=== PATIENT | male | born 1980 | race Caucasian/White ===

== ENCOUNTER 2017-01-13 20:14 | Emergency (ER) | payer OTHER ==
[2017-01-13] MEDS ORDERED: LORazepam 0.5 MG TABLET PO STA (23:49)
[2017-01-13] MEDS ORDERED: LORazepam 0.5 MG TABLET ONE (23:49)
== END 2017-01-14 15:16 ==
DX: F99 Mental disorder, not otherwise specified (principal); F12.10 Cannabis abuse, uncomplicated; F19.10 Other psychoactive substance abuse, uncomplicated; R03.0 Elevated blood-pressure reading, without diagnosis of hypertension
CPT/HCPCS: 36415; 80053; 80306; 80320; 83690; 84443; 85025; 99283; 99285; A9270

== ENCOUNTER 2019-02-16 11:35 | Inpatient (IN) | payer OTHER ==
[2019-02-16] MEDS ORDERED: ONDANSETRON 4 MG/2 ML VIAL IVP STA (13:11)
[2019-02-16] MEDS ORDERED: SODIUM CHLORIDE 0.9% 1,000 ML IV ONE ×2 (13:11→14:18)
--- NOTE | 2019-02-16 13:14 | ED Physician Documentation ---
PD HPI NVD - Stated complaint Stated Complaint: VOMITING/WEAKNESS - Chief complaint Chief Complaint: General - History obtained from History obtained from: Patient, Family (Mother) - History of Present Illness Timing - onset: How many days ago (2) Timing - duration: Days (2) Timing - details: Still present Contributing factors: Sick contact (Brother was previously sick with similar symptoms.) Similar symptoms before: Has not had sx before - Additonal information Additional information: The patient is a 38-year-old male who presents with nausea and vomiting that has been ongoing for the past 2 days. He had one episode of diarrhea. He denies abdominal pain or fever, but he does report cold sweats, and comes in concerned about dehydration. He has had decreased urine output. He denies headache or sore throat. His brother was sick with similar symptoms previously, but has improved. The patient has a history of depression and recently had an increase in his medication, Rexulti. Review of Systems Constitutional: reports: Myalgias, Fatigue, Sweats Eyes: denies: Irritation Ears: denies: Tinnitus/ringing Nose: denies: Congestion Throat: denies: Sore throat Cardiac: denies: Chest pain / pressure Respiratory: denies: Dyspnea, Cough GI: reports: Nausea, Vomiting. denies: Abdominal Pain : denies: Dysuria Skin: denies: Rash Musculoskeletal: denies: Back pain Neurologic: denies: Syncope, Headache PD PAST MEDICAL HISTORY - Past Medical History Past Medical History: Yes Endocrine/Autoimmune: None Psych: Depression - Past Surgical History Past Surgical History: No - Present Medications Home Medications: Ambulatory Orders Medication Instructions Recorded Confirmed Brexpiprazole [Rexulti] 0.5 mg PO DAILY 02/16/19 02/16/19 Methylphenidate HCl 52 mg PO DAILY 02/16/19 02/16/19 [Methylphenidate ER] Mirtazapine 45 mg PO DAILY PM 02/16/19 02/16/19 Venlafaxine ER [Effexor ER] 37.5 mg PO DAILY 02/16/19 02/16/19 - Allergies Allergies/Adverse Reactions: Allergies Allergy/AdvReac Type Severity Reaction Status Date / Time venom-wasp Allergy Anaphylaxis Verified 02/16/19 11:53 - Social History Does the pt smoke?: No Smoking Status: Never smoker Does the pt drink ETOH?: No Does the pt have substance abuse?: Yes - Immunizations Immunizations are current?: Yes - POLST Patient has POLST: No PD ED PE NORMAL - Vitals Vital signs reviewed: Yes (tachycardic) - General General: Alert and oriented X 3, Well developed/nourished, Other (Appears dehydrated, with sunken eyes.) - HEENT HEENT: Atraumatic, EOMI, Pharynx benign, Other (Dry oral mucosa.) - Neck Neck: Supple, no meningeal sign, No adenopathy - Cardiac Cardiac: No murmur, Other (Rapid rate, regular rhythm.) - Respiratory Respiratory: No respiratory distress, Clear bilaterally - Abdomen Abdomen: Soft, Non tender - Back Back: No CVA TTP - Derm Derm: No rash - Extremities Extremities: No edema, No calf tenderness / cord - Neuro Neuro: Alert and oriented X 3, No motor deficit Results - Vitals Vitals: Vital Signs - 24 hr 02/16/19 02/16/19 02/16/19 11:48 14:28 16:28 Temperature 37.2 C Heart Rate 128 H 115 H 99 Respiratory 20 20 18 Rate Blood Pressure 116/77 148/113 H 125/63 O2 Saturation 99 100 99 Oxygen O2 Source Room air - Labs Labs: Laboratory Tests 02/16/19 02/16/19 02/16/19 13:27 13:27 13:27 WBC 23.7 H RBC 5.61 Hgb 16.8 Hct 50.1 MCV 89.3 MCH 30.0 MCHC 33.6 RDW 13.5 Plt Count 386 MPV 8.9 Neut # (Auto) 20.8 H Lymph # (Auto) 1.5 Fannin # (Auto) 1.3 H Eos # (Auto) 0.0 Baso # (Auto) 0.0 Absolute Nucleated RBC 0.01 Band Neuts % (Manual) Not Reportable Abnorm Lymph % (Manual) Not Reportable Nucleated RBC % 0.0 Neutrophils # (Manual) Not Reportable Lymphocytes # (Manual) Not Reportable Monocytes # (Manual) Not Reportable Eosinophils # (Manual) Not Reportable Basophils # (Manual) Not Reportable Differential Comment MANUAL=AUTO DIFF Manual Slide Review Indicated Platelet Estimate NORMAL (130-450,000) Platelet Morphology NORMAL APPEARANCE RBC Morph Micro Appear NORMAL APPEARANCE Sodium Potassium Chloride Carbon Dioxide Anion Gap BUN Creatinine Estimated GFR (MDRD) Glucose Lactic Acid Calcium Total Bilirubin AST Alkaline Phosphatase Total Creatine Kinase 735 H Total Protein Albumin Globulin Albumin/Globulin Ratio Lipase Urine Color Cancelled Urine Clarity Cancelled Urine pH Cancelled Ur Specific Herald Cancelled Urine Protein Cancelled Urine Glucose (UA) Cancelled Urine Ketones Cancelled Urine Occult Blood Cancelled Urine Nitrite Cancelled Urine Bilirubin Cancelled Urine Urobilinogen Cancelled Ur Leukocyte Esterase Cancelled Urine RBC Urine WBC Ur Squamous Epith Cells Amorphous Sediment Urine Bacteria Urine Casts Ur Microscopic Review Cancelled Urine Culture Comments Cancelled 02/16/19 02/16/19 02/16/19 14:03 14:03 16:23 WBC RBC Hgb Hct MCV MCH MCHC RDW Plt Count MPV Neut # (Auto) Lymph # (Auto) Fannin # (Auto) Eos # (Auto) Baso # (Auto) Absolute Nucleated RBC Band Neuts % (Manual) Abnorm Lymph % (Manual) Nucleated RBC % Neutrophils # (Manual) Lymphocytes # (Manual) Monocytes # (Manual) Eosinophils # (Manual) Basophils # (Manual) Differential Comment Manual Slide Review Platelet Estimate Platelet Morphology RBC Morph Micro Appear Sodium 131 L Potassium 5.0 Chloride 82 L Carbon Dioxide 21 Anion Gap 28.0 H BUN 53 H Creatinine 6.0 H Estimated GFR (MDRD) 11 L Glucose 150 H Lactic Acid 2.4 H Calcium 10.3 Total Bilirubin 0.8 AST 57 H Alkaline Phosphatase 89 Total Creatine Kinase Total Protein 10.0 H Albumin 5.8 H Globulin 4.2 Albumin/Globulin Ratio 1.4 Lipase 31 Urine Color YELLOW Urine Clarity CLOUDY Urine pH 5.0 Ur Specific Herald >=1.030 H Urine Protein 100 H Urine Glucose (UA) NEGATIVE Urine Ketones 40 H Urine Occult Blood MODERATE H Urine Nitrite NEGATIVE Urine Bilirubin NEGATIVE Urine Urobilinogen 0.2 (NORMAL) Ur Leukocyte Esterase NEGATIVE Urine RBC 0-5 Urine WBC 4-5 Ur Squamous Epith Cells RARE Squamous Amorphous Sediment Few Urine Bacteria Few Urine Casts 3-5 Granular Casts Ur Microscopic Review Urine Culture Comments NOT INDICATED PD MEDICAL DECISION MAKING - ED course Complexity details: reviewed results, re-evaluated patient, considered differential, d/w patient, d/w family, d/w jewelry consultant ED course: The patient's presentation is significant for dehydration with elevated BUN and creatinine of 53 and 6.0. His lactate level is elevated at 2.4, and his creatine kinase is elevated at 735. His urine is concentrated with specific gravity greater than 1.030, with sediments. White count is elevated at 23.7. His dehydration is associated with a 2-day history of vomiting. His abdominal exam is benign, and there is no evidence of urinary tract infection on urinalysi s. He has had no pulmonary symptoms. He reports that his brother was sick with vomiting for 24 hours prior to his getting sick. His brothers symptoms have since resolved. During the past week a new antidepressant medication, Rexulti, was added to his antidepressant treatment. Treatment in the emergency department included administration of normal saline 2 L IV, and Zofran 4 mg IV. He felt subjectively improved after this treatment, and was able to urinate. Because of his acute renal function impairment, it is medically prudent to continue IV fluid hydration and recheck renal function. I discussed his condition with Dr. Zamudio, who accepts him for further evaluation and treatment. Departure - Departure Disposition: ED Place in Observation Clinical Impression: Dehydration, Creatinine elevation Vomiting Qualifiers: Vomiting type: unspecified Vomiting Intractability: non-intractable Nausea presence: with nausea Qualified Code(s): R11.2 - Nausea with vomiting, unspe cified Condition: Stable Discharge Date/Time: 02/16/19 18:08
[2019-02-16] MEDS ORDERED: ONDANSETRON 4 MG/2 ML VIAL ONE (13:26)
[2019-02-16] MEDS ORDERED: PROMETHAZINE INJ 12.5 MG in SODIUM CHLORIDE 0.9% 50 ML IV STA (14:18)
[2019-02-16] MEDS ORDERED: PROMETHAZINE 25 MG/1 ML VIAL ONE (14:27)
[2019-02-16 15:17] LABS: ALBUMIN 5.8 g/dL (3.2-5.5); ALBUMIN/GLOBULIN RATIO 1.4 (1.0-2.2); ALKALINE PHOSPHATASE 89 IU/L (42-121); AST ASPARTATE AMINOTRANSFERASE 57 IU/L (10-42); BILIRUBIN,TOTAL 0.8 mg/dL (0.2-1.0); BUN - BLOOD UREA NITROGEN 53 mg/dL (6-20); CALCIUM 10.3 mg/dL (8.5-10.3); CARBON DIOXIDE - CO2 21 mmol/L (21-32); CHLORIDE 82 mmol/L (101-111); GFR - MDRD 11 (>89); GLUCOSE 150 mg/dL (70-100); LIPASE 31 U/L (22-51); SODIUM 131 mmol/L (135-145)
[2019-02-16 15:53] LABS: BASOPHILS % (AUTO) 0.2 %; HGB - HEMOGLOBIN 16.8 g/dL (14.0-18.0); LYMPHOCYTES # (AUTO) 1.5 10^3/uL (1.5-3.5); LYMPHOCYTES % (AUTO) 6.5 %; MEAN CORPUSCULAR HGB CONC 33.6 g/dL (32.0-36.0); MEAN CORPUSCULAR VOLUME 89.3 fL (80.0-94.0); MEAN PLATELET VOLUME 8.9 fL (7.4-11.4); MONOCYTES # (AUTO) 1.3 10^3/uL (0.0-1.0); MONOCYTES % (AUTO) 5.4 %; NEUTROPHILS # (AUTO) 20.8 10^3/uL (1.5-6.6); NEUTROPHILS % (AUTO) 87.9 %; PLT - PLATELET COUNT 386 10^3/uL (130-450); RED BLOOD COUNT 5.61 10^6/uL (4.70-6.10); RED CELL DISTRIBUTION WIDTH 13.5 % (12.0-15.0); WHITE BLOOD COUNT 23.7 x10^3/uL (4.8-10.8)
[2019-02-16 16:00] LABS: BILIRUBIN,URINE NEGATIVE (NEGATIVE); GLUCOSE, URINE (UA) NEGATIVE (NEGATIVE); KETONES,URINE (UA) 40 mg/dL (NEGATIVE); LEUKOCYTE ESTERASE, URINE NEGATIVE (NEGATIVE); NITRITE,URINE NEGATIVE (NEGATIVE); OCCULT BLOOD,URINE MODERATE (NEGATIVE); PROTEIN,URINE 100 mg/dL (NEGATIVE); UROBILINOGEN,URINE 0.2 (NORMAL) E.U./dL (NORMAL)
[2019-02-16 16:01] LABS: BACTERIA,URINE Few /HPF (None Seen); CLARITY,URINE CLOUDY (CLEAR); RBC,URINE 0-5 /HPF (0-5); SQUAMOUS EPITHELIAL CELL,UR RARE Squamous (<= Few)
[2019-02-16 16:02] LABS: AMORPHOUS SEDIMENT,UR Few /LPF
[2019-02-16 16:52] LABS: DIFFERENTIAL COMMENT MANUAL=AUTO DIFF; PLATELET ESTIMATE, MANUAL NORMAL (130-450,000) (NORMAL); PLATELET MORPHOLOGY NORMAL APPEARANCE (NORMAL); RBC MORPHOLOGY (MULTIPLE) NORMAL APPEARANCE (NORMAL)
[2019-02-16] MEDS ORDERED: ONDANSETRON 4 MG/2 ML VIAL IVP PRN (17:25)
[2019-02-16] MEDS ORDERED: ACETAMINOPHEN 325 MG TABLET PO PRN (17:25)
[2019-02-16] MEDS ORDERED: PROMETHAZINE 25 MG/1 ML VIAL IM PRN (17:25)
--- NOTE | 2019-02-16 17:33 | HISTORY & PHYSICAL EXAMINATION ---
Chief Complaint - Chief Complaint Chief Complaint: vomiting and weakness History of Present Illness - History of Present Illness HPI Comment/Other: Mr. Rucker is 38-yrs-old male with a PMH significant for depression, who present ER for complaint of vomiting and weakness. Pt report he had nausea and vomiting that has been ongoing for the past 2 days " I can not get down anything, then it immediately vomit back up." Pt report he had one episode sickness like this before but it went away quickly. But this time he continue nausea and vomiting, and with cold sweating, and his vomiting did not go away. He denies fever, cough, chest pain, or abdominal pain. Pt denies dysurine or hematouria. pt comes in concerned about his dehydration today. Pt also report his urine output is decreased. pt had no urine from last night until he was arrival to hospital. After pt was treat with IVF of NS in ER. Pt had twice urination in ER. Pt report his psychiatrist recently increased his medication, Rexulti from 0.5 mg to 1mg for two days. Pt started Rexulti 0.5 mg for two weeks ago, per pt report. Pt's BUN and creatinine of 53 and 6.0. Pt's creatinine is 0.9 at 2017. His lactate level elevated at 2.4, and his creatine kinase is at 735. His White count elevated at 23.7. Pt was initially tachycardia then HR is down to 80-99, otherwise pt is hemodynamic stable. pt is admitted for RCISTI History - Past Medical History Endocrine/Autoimmune: reports: None Psych: reports: Depression MRSA Hx?: No - Family & Social History Family History: Mother: Alive and Well Family History Comment/Other: pt is single, never . pt is living at [place]. Pt has one brother and his mother is living closely to him. 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 Social History Notes: pt denies cigarett smoker, alcohol and drug abuse. - POLST Patient has POLST: No POLST Status: Full Code Meds/Allgy - Home Medications Home Medications: Ambulatory Orders Medication Instructions Recorded Confirmed Brexpiprazole [Rexulti] 0.5 mg PO DAILY 02/16/19 02/16/19 Methylphenidate HCl 52 mg PO DAILY 02/16/19 02/16/19 [Methylphenidate ER] Mirtazapine 45 mg PO DAILY PM 02/16/19 02/16/19 Venlafaxine ER [Effexor ER] 37.5 mg PO DAILY 02/16/19 02/16/19 - Allergies Allergies/Adverse Reactions: Allergies Allergy/AdvReac Type Severity Reaction Status Date / Time venom-wasp Allergy Anaphylaxis Verified 02/16/19 11:53 Review of Systems - Constitutional Constitutional: reports: Fatigue, Weakness, Diaphoresis. denies: Fever, Chills, Malaise, Poor appetite, Night sweats - Eyes Eyes: denies: Pain, Irritation, Amaurosis, Blurred vision, Spots in vision, Field loss, Vision loss, Dipolpia - Ears, Nose & Throat Ears, Nose & Throat: denies: Ear pain, Hearing loss, Hearing aids, Tinnitus, Vertigo, Nasal pain, Nasal discharge, Nosebleeds, Nasal obstruction, Postnasal drainage, Dentures, Sore throat, Hoarseness - Cardiovascular Cariovascular: denies: Irregular heart rate, Palpitations, Chest pain, Edema, Lightheadedness, Syncope, Exertional dyspnea, Decr. exercise tolerance - Respiratory Respiratory: denies: Cough, Sputum production, Wheezing, Snoring, Hemoptysis, Orthopnea, SOB at rest, SOB with exertion - Gastrointestinal Gastrointestinal: reports: Diarrhea, Nausea, Vomiting. denies: Abdominal pain, Abdominal distention, Constipation, Change in bowel habits, Rectal bleeding, Black stools, Bloody stools, Bile emesis, Cameron blood emesis, Coffee grounds emesis, Reflux/heartburn - Genitourinary Genitourinary: denies: Dysuria, Frequency, Urgency, Hematuria, Incontinence, Flank pain, Nocturia, Urethral discharge - Musculoskeletal Musculoskeletal: denies: Muscle pain, Back pain, Muscle aches, Stiffness, Limited range of motion, Muscle weakness, Gout, Joint pain - Integumentary Integumentary: denies: Rash, Pruritis, Lesions, Dryness, Lumps, Acne, Pigment changes, Nail changes - Neurological Neurological: denies: General weakness, Focal weakness, Headache, Dizziness, Numbness, Memory problems, Pre-existing deficit, Abnormal gait, Seizures, Incoordination, Slurred speech - Psychiatric Psychiatric: reports: Depression. denies: Anxiety, Suicidal, Delusions, Hallucinations, Homicidal - Endocrine Endocrine: denies: Polyuria, Polydypsia, Polyphagia, Intolerance to cold - Hematologic/Lymphatic Hematologic/Lymphatic: denies: Anemia, Bruising, Petechiae, Blood clots, Lymphadenopathy, Bleeding tendencies Prior Level of Functionality: independently Exam - Vital Signs Reviewed Vital Signs: Yes Vital Signs: Vital Signs x48h Temp Pulse Resp BP Pulse Ox 02/16/19 16:28 99 18 125/63 99 02/16/19 14:28 115 H 20 148/113 H 100 02/16/19 11:48 37.2 C 128 H 20 116/77 99 - Physical Exam General Appearance: positive: No acute distress, Alert. negative: Lethargic Eyes Bilateral: positive: Normal inspection, PERRL, No lid inflammation, Conjunctivae nml ENT: positive: ENT inspection nml, Pharynx nml, No signs of dehydration. negative: Purulent nasal drainage, Pharyngeal erythema, Oral lesions Neck: positive: Nml inspection, Thyroid nml, No JVD, Trachea midline. negative: Thyromegaly, Lymphadenopathy (R), Lymphadenopathy (L), Stiff neck, Swell ing/bruising, Tracheal deviation Respiratory: positive: Chest non-tender, No respiratory distress, Breath sounds nml. negative: Wheezes, Rales, Rhonchi Cardiovascular: positive: Regular rate & rhythm, No murmur, No gallop, Irregularly irregular, Extrasystoles. negative: Tachycardia, Bradycardia, JVD present, Systolic murmur, Diastolic murmur Peripheral Pulses: positive: 2+ Abdomen: positive: Non-tender, No organomegaly, Nml bowel sounds, No distention. negative: Tenderness, Guarding, Rebound Back: positive: Nml inspection. negative: CVA tenderness (R), CVA tenderness (L) Skin: positive: Color nml, No rash, Warm, Dry. negative: Cyanosis, Diaphoresis, Pallor Extremities: positive: Non-tender, Full ROM, Nml appearance. negative: Calf tenderness, Joint swelling, Jared's sign/cords Neurologic/Psychiatric: positive: Oriented x3, Motor nml, Sensation nml, Mood/affect nml. negative: Weakness, Sensory loss, Facial droop, Slurred/abnml speech, Depressed mood/affect Sepsis Event Note (H) - Evaluation Current Stage of Sepsis: Ruled out Conclusion/Plan - Problem List (1) Acute kidney injury Conclusion/Plan: pt has creatinine at 6, pt had 0.9 on 2017. pt had a new medication Rexulti for two weeks, increase dosage for two days. Rexulti did have side effect of increase CK. Pt report he has vomiting and diarrhea, and concern for dehydration. CK is over 700. Hold pt's home medication now start IVF of 250ml per hour. pt has no hx of cardiac problem. lab monitor and tele monitor (2) History of depression Conclusion/Plan: pt has hx of depression. For his CRISTI, pt's home medication is holding now. will reconcile when pt's renal function improved significantly. pt and pt's mother understand and agree the plan. (3) Nausea vomiting and diarrhea Conclusion/Plan: no more N/V/D. PRN Zofran continue IVF of NS lab monitor (4) Full code status Conclusion/Plan: pt request full code - Lab Results Fish Bones: 02/17/19 05:15 02/17/19 05:15 Core Measures - Anticipated LOS I expect patient to be DC'd or transferred within 96 hours.: Yes - DVT/VTE - Prophylaxis VTE/DVT Device ordered at admit?: Yes VTE/DVT Prophylaxis med ordered at admit?: Yes
[2019-02-16] MEDS: SODIUM CHLORIDE FLUSH 0.9% 10 ML SYRINGE IVP SCH (18:26)
[2019-02-16] MEDS: PANTOPRAZOLE 40 MG VIAL IVP SCH (18:26)
[2019-02-16] MEDS: SODIUM CHLORIDE 0.9% 1,000 ML IV SCH ×2 (18:26→22:28)
--- NOTE | 2019-02-16 19:42 | Ultrasound Report ---
Reason: renal failure Procedure Date: 02/16/2019 Accession Number: [id number] / [id number] Procedure: US - Retroperitoneal CPT Code: FULL RESULT: EXAM: RENAL ULTRASOUND EXAM DATE: 02/16/2019 06:46 PM. CLINICAL HISTORY: Renal failure. COMPARISON: None. TECHNIQUE: Real-time scanning was performed with static images obtained. FINDINGS: Right Kidney: 11 x 5.7 x 5.8 cm. Normal echotexture with no stones, contour-deforming masses, or hydronephrosis. Left Kidney: 10.2 x 5.4 x 5.8 cm. Normal echotexture with no stones, contour-deforming masses, or hydronephrosis. Bladder: Bilateral jets seen. The prevoid bladder volume was 180 cc. The postvoid bladder volume was 5.8 cc. Other: None. IMPRESSION: Normal renal ultrasound. RADIA
[2019-02-16] MEDS ORDERED: MECLIZINE 12.5 MG TABLET PO PRN ×2 (21:28→22:05)
[2019-02-16] MEDS ORDERED: MIDODRINE 2.5 MG TABLET PO PRN (21:28)
[2019-02-17] MEDS: SODIUM CHLORIDE 0.9% 1,000 ML IV SCH ×6 (02:32→23:57)
[2019-02-17 05:48] LABS: EOSINOPHILS % (AUTO) 0.2 %; HGB - HEMOGLOBIN 10.3 g/dL (14.0-18.0); LYMPHOCYTES % (AUTO) 18.9 %; MEAN CORPUSCULAR HEMOGLOBIN 30.8 pg (27.0-31.0); MEAN CORPUSCULAR HGB CONC 33.9 g/dL (32.0-36.0); MEAN CORPUSCULAR VOLUME 90.9 fL (80.0-94.0); MEAN PLATELET VOLUME 8.6 fL (7.4-11.4); MONOCYTES # (AUTO) 1.1 10^3/uL (0.0-1.0); MONOCYTES % (AUTO) 10.5 %; NEUTROPHILS # (AUTO) 7.5 10^3/uL (1.5-6.6); NEUTROPHILS % (AUTO) 70.4 %; PLT - PLATELET COUNT 191 10^3/uL (130-450); RED BLOOD COUNT 3.35 10^6/uL (4.70-6.10); RED CELL DISTRIBUTION WIDTH 13.6 % (12.0-15.0); WHITE BLOOD COUNT 10.6 x10^3/uL (4.8-10.8)
[2019-02-17 05:54] LABS: ALBUMIN 3.3 g/dL (3.2-5.5); ALBUMIN/GLOBULIN RATIO 1.5 (1.0-2.2); BILIRUBIN,TOTAL 0.6 mg/dL (0.2-1.0); CREATININE 2.1 mg/dL (0.6-1.2); TOTAL PROTEIN 5.5 g/dL (6.7-8.2)
[2019-02-17] MEDS: PANTOPRAZOLE 40 MG VIAL IVP SCH (06:18)
[2019-02-17] MEDS: SODIUM CHLORIDE FLUSH 0.9% 10 ML SYRINGE IVP PRN (06:19)
[2019-02-17] MEDS: POLYETHYLENE GLYCOL 3350 17 GM PACKET PO SCH (11:22)
[2019-02-17] MEDS: SODIUM CHLORIDE FLUSH 0.9% 10 ML SYRINGE IVP SCH ×3 (11:22→23:59)
--- NOTE | 2019-02-17 14:55 | PROVIDER PROGRESS NOTE ---
Subjective - Prog Note Date Prog Note Date: 02/17/19 - Subjective Pt reports feeling: Improved Subjective: pt report he feel better today, no N/V/D. he ate the dinner but no appetite in the morning. pt report he had good urine also. pt's creatinine is down to 2.1 from 6. but CK is slight increasing from 700 to 1000. Current Medications - Current Medications Current Medications: Active Medications Acetaminophen (Tylenol) 650 mg PO Q4HR PRN PRN Reason: Pain 1 to 4 Sodium Chloride (Normal Saline 0.9%) 1,000 mls @ 250 mls/hr IV .Q4H [facility] Last Admin: 02/17/19 11:20 Dose: 250 mls/hr Meclizine HCl (Antivert) 25 mg PO Q6HR PRN PRN Reason: Dizziness Midodrine () 10 mg PO TID PRN PRN Reason: SBP<100 Ondansetron HCl (Zofran Inj) 4 mg IVP Q6HR PRN PRN Reason: Nausea / Vomiting Pantoprazole Sodium (Protonix) 40 mg IVP QDAC [facility] Last Admin: 02/17/19 06:18 Dose: 40 mg Polyethylene Glycol (Miralax) 17 gm PO DAILY [facility] Last Admin: 02/17/19 11:22 Dose: Not Given Promethazine HCl (Phenergan Inj) 25 mg IM Q6HR PRN PRN Reason: Nausea / Vomiting Sodium Chloride (Normal Saline Flush 0.9%) 10 ml IVP PRN PRN PRN Reason: NEEDED PER PROVIDER ORDERS Last Admin: 02/17/19 06:19 Dose: 10 ml Sodium Chloride (Normal Saline Flush 0.9%) 10 ml IVP 0100,0900,1700 [facility] Last Admin: 02/17/19 11:22 Dose: Not Given Brexpiprazole [Rexulti] 0.5 mg PO DAILY 02/16/19 Methylphenidate HCl [Methylphenidate ER] 52 mg PO DAILY 02/16/19 Mirtazapine 45 mg PO DAILY PM 02/16/19 Venlafaxine ER [Effexor ER] 37.5 mg PO DAILY 02/16/19 Objective - Vital Signs/Intake & Output Reviewed Vital Signs: Yes Vital Signs: Vital Signs x48h Temp Pulse Resp BP Pulse Ox 02/17/19 13:05 37 C 67 20 112/55 L 97 02/17/19 07:47 36.7 C 66 16 104/54 L 98 Intake & Output: Intake & Output 02/14/19 02/15/19 02/16/19 02/17/19 23:59 23:59 23:59 23:59 Intake Total 4350.5 3590 Output Total 850 4800 Balance 3500.5 -1210 - Objective General Appearance: positive: No acute distress, Alert. negative: Lethargic Eyes Bilateral: positive: Normal inspection, PERRL, No lid inflammation, Conjunctivae nml ENT: positive: ENT inspection nml, Pharynx nml, No signs of dehydration. negative: Purulent nasal drainage, Pharyngeal erythema, Oral lesions Neck: positive: Nml inspection, Thyroid nml, No JVD, Trachea midline. negative: Thyromegaly, Lymphadenopathy (R), Lymphadenopathy (L), Stiff neck, Swelling/bru ising, Tracheal deviation Respiratory: positive: Chest non-tender, No respiratory distress, Breath sounds nml. negative: Wheezes, Rales, Rhonchi Cardiovascular: positive: Regular rate & rhythm, No murmur, No gallop. negative: Irregularly irregular, Extrasystoles, Tachycardia, Bradycardia, JVD present, Systolic murmur, Diastolic murmur Peripheral Pulses: 2+ Radial (R), 2+ Radial (L), 2+ Dorsalis pedis (R), 2+ Dorsalis pedis (L) Abdomen: positive: Non-tender, No organomegaly, Nml bowel sounds, No distention. negative: Tenderness, Guarding, Rebound Back: positive: Nml inspection. negative: CVA tenderness (R), CVA tenderness (L) Skin: positive: Color nml, No rash, Warm, Dry. negative: Cyanosis, Diaphoresis, Pallor Extremities: positive: Non-tender, Full ROM, Nml appearance. negative: Calf tenderness, Joint swelling, Jared's sign/cords Neurologic/Psychiatric: positive: Oriented x3, Motor nml, Sensation nml, Mood/affect nml. negative: Weakness, Sensory loss, Facial droop, Slurred/abnml speech, Depressed mood/affect - Lab Results Fish Bones: 02/17/19 05:15 02/17/19 05:15 Other Labs: Lab Results x24hrs 02/17/19 02/17/19 02/17/19 Range/Units 09:01 09:01 05:15 WBC (4.8-10.8) x10^3/uL RBC (4.70-6.10) 10^6/uL Hgb (14.0-18.0) g/dL Hct (42.0-52.0) % MCV (80.0-94.0) fL MCH (27.0-31.0) pg MCHC (32.0-36.0) g/dL RDW (12.0-15.0) % Plt Count (130-450) 10^3/uL MPV (7.4-11.4) fL Neut # (Auto) (1.5-6.6) 10^3/uL Lymph # (Auto) (1.5-3.5) 10^3/uL [place] # (Auto) (0.0-1.0) 10^3/uL Eos # (Auto) (0.0-0.7) 10^3/uL Baso # (Auto) (0.0-0.1) 10^3/uL Absolute Nucleated RBC x10^3/uL Band Neuts % (Manual) Abnorm Lymph % (Manual) Nucleated RBC % /100WBC Neutrophils # (Manual) Lymphocytes # (Manual) Monocytes # (Manual) Eosinophils # (Manual) Basophils # (Manual) Differential Comment Manual Slide Review Platelet Estimate (NORMAL) Platelet Morphology (NORMAL) RBC Morph Micro Appear (NORMAL) Sodium 139 (135-145) mmol/L Potassium 5.3 H (3.5-5.0) mmol/L Chloride 110 (101-111) mmol/L Carbon Dioxide 23 (21-32) mmol/L Anion Gap 6.0 (6-13) BUN 39 H (6-20) mg/dL Creatinine 2.1 H (0.6-1.2) mg/dL Estimated GFR (MDRD) 36 L (>89) Glucose 98 (70-100) mg/dL Lactic Acid 1.6 (0.5-2.2) mmol/L Calcium 8.0 L (8.5-10.3) mg/dL Total Bilirubin 0.6 (0.2-1.0) mg/dL AST 33 (10-42) IU/L ALT 21 (10-60) IU/L Alkaline Phosphatase 47 (42-121) IU/L Total Creatine Kinase 1031 H* (22-269) IU/L Total Protein 5.5 L (6.7-8.2) g/dL Albumin 3.3 (3.2-5.5) g/dL Globulin 2.2 (2.1-4.2) g/dL Albumin/Globulin Ratio 1.5 (1.0-2.2) Lipase (22-51) U/L Urine Color Urine Clarity Urine pH Ur Specific [place] Urine Protein Urine Glucose (UA) Urine Ketones Urine Occult Blood Urine Nitrite Urine Bilirubin Urine Urobilinogen Ur Leukocyte Esterase Urine RBC (0-5) /HPF Urine WBC (0-3) /HPF Ur Squamous Epith Cells (<= Few) Amorphous Sediment /LPF Urine Bacteria (None Seen) /HPF Urine Casts /LPF Ur Microscopic Review Urine Culture Comments 02/17/19 02/16/19 02/16/19 Range/Units 05:15 16:23 14:03 WBC 10.6 (4.8-10.8) x10^3/uL RBC 3.35 L (4.70-6.10) 10^6/uL Hgb 10.3 L (14.0-18.0) g/dL Hct 30.5 L (42.0-52.0) % MCV 90.9 (80.0-94.0) fL MCH 30.8 (27.0-31.0) pg MCHC 33.9 (32.0-36.0) g/dL RDW 13.6 (12.0-15.0) % Plt Count 191 (130-450) 10^3/uL MPV 8.6 (7.4-11.4) fL Neut # (Auto) 7.5 H (1.5-6.6) 10^3/uL Lymph # (Auto) 2.0 (1.5-3.5) 10^3/uL [place] # (Auto) 1.1 H (0.0-1.0) 10^3/uL Eos # (Auto) 0.0 (0.0-0.7) 10^3/uL Baso # (Auto) 0.0 (0.0-0.1) 10^3/uL Absolute Nucleated RBC 0.01 x10^3/uL Band Neuts % (Manual) Abnorm Lymph % (Manual) Nucleated RBC % 0.0 /100WBC Neutrophils # (Manual) Lymphocytes # (Manual) Monocytes # (Manual) Eosinophils # (Manual) Basophils # (Manual) Differential Comment Manual Slide Review Platelet Estimate (NORMAL) Platelet Morphology (NORMAL) RBC Morph Micro Appear (NORMAL) Sodium (135-145) mmol/L Potassium (3.5-5.0) mmol/L Chloride (101-111) mmol/L Carbon Dioxide (21-32) mmol/L Anion Gap (6-13) BUN (6-20) mg/dL Creatinine (0.6-1.2) mg/dL Estimated GFR (MDRD) (>89) Glucose (70-100) mg/dL Lactic Acid 2.4 H (0.5-2.2) mmol/L Calcium (8.5-10.3) mg/dL Total Bilirubin (0.2-1.0) mg/dL AST (10-42) IU/L ALT (10-60) IU/L Alkaline Phosphatase (42-121) IU/L Total Creatine Kinase (22-269) IU/L Total Protein (6.7-8.2) g/dL Albumin (3.2-5.5) g/dL Globulin (2.1-4.2) g/dL Albumin/Globulin Ratio (1.0-2.2) Lipase (22-51) U/L Urine Color YELLOW Urine Clarity CLOUDY Urine pH 5.0 Ur Specific [place] >=1.030 H Urine Protein 100 H Urine Glucose (UA) NEGATIVE Urine Ketones 40 H Urine Occult Blood MODERATE H Urine Nitrite NEGATIVE Urine Bilirubin NEGATIVE Urine Urobilinogen 0.2 (NORMAL) Ur Leukocyte Esterase NEGATIVE Urine RBC 0-5 (0-5) /HPF Urine WBC 4-5 (0-3) /HPF Ur Squamous Epith Cells RARE Squamous (<= Few) Amorphous Sediment Few /LPF Urine Bacteria Few (None Seen) /HPF Urine Casts 3-5 Granular Casts /LPF Ur Microscopic Review Urine Culture Comments NOT INDICATED 02/16/19 02/16/19 02/16/19 Range/Units 14:03 13:27 13:27 WBC (4.8-10.8) x10^3/uL RBC (4.70-6.10) 10^6/uL Hgb (14.0-18.0) g/dL Hct (42.0-52.0) % MCV (80.0-94.0) fL MCH (27.0-31.0) pg MCHC (32.0-36.0) g/dL RDW (12.0-15.0) % Plt Count (130-450) 10^3/uL MPV (7.4-11.4) fL Neut # (Auto) (1.5-6.6) 10^3/uL Lymph # (Auto) (1.5-3.5) 10^3/uL [place] # (Auto) (0.0-1.0) 10^3/uL Eos # (Auto) (0.0-0.7) 10^3/uL Baso # (Auto) (0.0-0.1) 10^3/uL Absolute Nucleated RBC x10^3/uL Band Neuts % (Manual) Abnorm Lymph % (Manual) Nucleated RBC % /100WBC Neutrophils # (Manual) Lymphocytes # (Manual) Monocytes # (Manual) Eosinophils # (Manual) Basophils # (Manual) Differential Comment Manual Slide Review Platelet Estimate (NORMAL) Platelet Morphology (NORMAL) RBC Morph Micro Appear (NORMAL) Sodium 131 L (135-145) mmol/L Potassium 5.0 (3.5-5.0) mmol/L Chloride 82 L (101-111) mmol/L Carbon Dioxide 21 (21-32) mmol/L Anion Gap 28.0 H (6-13) BUN 53 H (6-20) mg/dL Creatinine 6.0 H (0.6-1.2) mg/dL Estimated GFR (MDRD) 11 L (>89) Glucose 150 H (70-100) mg/dL Lactic Acid (0.5-2.2) mmol/L Calcium 10.3 (8.5-10.3) mg/dL Total Bilirubin 0.8 (0.2-1.0) mg/dL AST 57 H (10-42) IU/L ALT (10-60) IU/L Alkaline Phosphatase 89 (42-121) IU/L Total Creatine Kinase 735 H (22-269) IU/L Total Protein 10.0 H (6.7-8.2) g/dL Albumin 5.8 H (3.2-5.5) g/dL Globulin 4.2 (2.1-4.2) g/dL Albumin/Globulin Ratio 1.4 (1.0-2.2) Lipase 31 (22-51) U/L Urine Color Cancelled Urine Clarity Cancelled Urine pH Cancelled Ur Specific [place] Cancelled Urine Protein Cancelled Urine Glucose (UA) Cancelled Urine Ketones Cancelled Urine Occult Blood Cancelled Urine Nitrite Cancelled Urine Bilirubin Cancelled Urine Urobilinogen Cancelled Ur Leukocyte Esterase Cancelled Urine RBC (0-5) /HPF Urine WBC (0-3) /HPF Ur Squamous Epith Cells (<= Few) Amorphous Sediment /LPF Urine Bacteria (None Seen) /HPF Urine Casts /LPF Ur Microscopic Review Cancelled Urine Culture Comments Cancelled 02/16/19 Range/Units 13:27 WBC 23.7 H (4.8-10.8) x10^3/uL RBC 5.61 (4.70-6.10) 10^6/uL Hgb 16.8 (14.0-18.0) g/dL Hct 50.1 (42.0-52.0) % MCV 89.3 (80.0-94.0) fL MCH 30.0 (27.0-31.0) pg MCHC 33.6 (32.0-36.0) g/dL RDW 13.5 (12.0-15.0) % Plt Count 386 (130-450) 10^3/uL MPV 8.9 (7.4-11.4) fL Neut # (Auto) 20.8 H (1.5-6.6) 10^3/uL Lymph # (Auto) 1.5 (1.5-3.5) 10^3/uL [place] # (Auto) 1.3 H (0.0-1.0) 10^3/uL Eos # (Auto) 0.0 (0.0-0.7) 10^3/uL Baso # (Auto) 0.0 (0.0-0.1) 10^3/uL Absolute Nucleated RBC 0.01 x10^3/uL Band Neuts % (Manual) Not Reportable Abnorm Lymph % (Manual) Not Reportable Nucleated RBC % 0.0 /100WBC Neutrophils # (Manual) Not Reportable Lymphocytes # (Manual) Not Reportable Monocytes # (Manual) Not Reportable Eosinophils # (Manual) Not Reportable Basophils # (Manual) Not Reportable Differential Comment MANUAL=AUTO DIFF Manual Slide Review Indicated Platelet Estimate NORMAL (130-450,000) (NORMAL) Platelet Morphology NORMAL APPEARANCE (NORMAL) RBC Morph Micro Appear NORMAL APPEARANCE (NORMAL) Sodium (135-145) mmol/L Potassium (3.5-5.0) mmol/L Chloride (101-111) mmol/L Carbon Dioxide (21-32) mmol/L Anion Gap (6-13) BUN (6-20) mg/dL Creatinine (0.6-1.2) mg/dL Estimated GFR (MDRD) (>89) Glucose (70-100) mg/dL Lactic Acid (0.5-2.2) mmol/L Calcium (8.5-10.3) mg/dL Total Bilirubin (0.2-1.0) mg/dL AST (10-42) IU/L ALT (10-60) IU/L Alkaline Phosphatase (42-121) IU/L Total Creatine Kinase (22-269) IU/L Total Protein (6.7-8.2) g/dL Albumin (3.2-5.5) g/dL Globulin (2.1-4.2) g/dL Albumin/Globulin Ratio (1.0-2.2) Lipase (22-51) U/L Urine Color Urine Clarity Urine pH Ur Specific [place] Urine Protein Urine Glucose (UA) Urine Ketones Urine Occult Blood Urine Nitrite Urine Bilirubin Urine Urobilinogen Ur Leukocyte Esterase Urine RBC (0-5) /HPF Urine WBC (0-3) /HPF Ur Squamous Epith Cells (<= Few) Amorphous Sediment /LPF Urine Bacteria (None Seen) /HPF Urine Casts /LPF Ur Microscopic Review Urine Culture Comments ABX Reporting Has patient been on IV antibiotics over the past 48 hours?: No Sepsis Event Note (H) - Evaluation Current Stage of Sepsis: Ruled out Assessment/Plan - Problem List (1) Acute kidney injury Impression: 02/17 pt's creatinine is down to 2.1 from 6, great improved continue IVF of NS lab monitor hold home meds now pt has creatinine at 6, pt had 0.9 on 2017. pt had a new medication Rexulti for two weeks, increase dosage for two days. Rexulti did have side effect of increase CK. Pt report he has vomiting and diarrhea, and concern for dehydration. CK is over 700. Hold pt's home medication now start IVF of 250ml per hour. pt has no hx of cardiac problem. lab monitor and tele monitor (2) History of depression Conclusion/Plan: hold home meds today for renal function recovery pt and his mother agree the treatment plan pt has hx of depression. For his CRISTI, pt's home medication is holding now. will reconcile when pt's renal function improved significantly. pt and pt's mother understand and agree the plan. (3) Nausea vomiting and diarrhea Conclusion/Plan: resolved no more N/V/D. PRN Zofran continue IVF of NS lab monitor (4) elevated CK pt has slight elevated CK, it appear caused by his medication to affect his muscle. Rexulti did have side effect of increase CK. hold home meds IVF of NS recheck lab
[2019-02-18] MEDS: SODIUM CHLORIDE 0.9% 1,000 ML IV SCH ×6 (04:11→23:54)
[2019-02-18] MEDS: SODIUM CHLORIDE FLUSH 0.9% 10 ML SYRINGE IVP PRN (06:12)
[2019-02-18] MEDS: PANTOPRAZOLE 40 MG VIAL IVP SCH (06:12)
[2019-02-18 06:48] LABS: BASOPHILS % (AUTO) 0.3 %; EOSINOPHILS # (AUTO) 0.1 10^3/uL (0.0-0.7); EOSINOPHILS % (AUTO) 1.6 %; HGB - HEMOGLOBIN 11.8 g/dL (14.0-18.0); LYMPHOCYTES # (AUTO) 2.7 10^3/uL (1.5-3.5); LYMPHOCYTES % (AUTO) 29.3 %; MEAN CORPUSCULAR HEMOGLOBIN 30.7 pg (27.0-31.0); MEAN CORPUSCULAR VOLUME 92.8 fL (80.0-94.0); MEAN PLATELET VOLUME 8.5 fL (7.4-11.4); MONOCYTES # (AUTO) 0.8 10^3/uL (0.0-1.0); MONOCYTES % (AUTO) 8.5 %; NEUTROPHILS # (AUTO) 5.5 10^3/uL (1.5-6.6); NEUTROPHILS % (AUTO) 60.3 %; PLT - PLATELET COUNT 193 10^3/uL (130-450); RED BLOOD COUNT 3.84 10^6/uL (4.70-6.10); RED CELL DISTRIBUTION WIDTH 13.8 % (12.0-15.0); WHITE BLOOD COUNT 9.1 x10^3/uL (4.8-10.8)
[2019-02-18 07:00] LABS: ALBUMIN 3.7 g/dL (3.2-5.5); ALBUMIN/GLOBULIN RATIO 1.5 (1.0-2.2); BILIRUBIN,TOTAL 0.8 mg/dL (0.2-1.0); CALCIUM 8.5 mg/dL (8.5-10.3); TOTAL PROTEIN 6.1 g/dL (6.7-8.2)
[2019-02-18] MEDS: POLYETHYLENE GLYCOL 3350 17 GM PACKET PO SCH (09:45)
[2019-02-18] MEDS ORDERED: MIRTAZAPINE 15 MG TABLET PO SCH ×2 (09:45→21:00)
[2019-02-18] MEDS: VENLAFAXINE ER 37.5 MG CAPSULE PO SCH (10:28)
[2019-02-18] MEDS: SODIUM CHLORIDE FLUSH 0.9% 10 ML SYRINGE IVP SCH ×3 (11:05→23:55)
--- NOTE | 2019-02-18 16:05 | PROVIDER PROGRESS NOTE ---
Subjective - Prog Note Date Prog Note Date: 02/18/19 - Subjective Pt reports feeling: Improved Subjective: pt's creatinine is down to 1 from 6.0. pt really want to his anti-depression and ADD medication put back to him. but pt's CK increased and pt did not eat and drink much. Pt want to go to home strongly, but his family disagree that. pt finally agreed to stay overnight to monitor CK and hopefully drink and eat more. Current Medications - Current Medications Current Medications: Active Medications Acetaminophen (Tylenol) 650 mg PO Q4HR PRN PRN Reason: Pain 1 to 4 Sodium Chloride (Normal Saline 0.9%) 1,000 mls @ 250 mls/hr IV .Q4H [facility] Last Admin: 02/18/19 15:08 Dose: 250 mls/hr Meclizine HCl (Antivert) 25 mg PO Q6HR PRN PRN Reason: Dizziness Midodrine () 10 mg PO TID PRN PRN Reason: SBP<100 Mirtazapine (Remeron) 45 mg PO QPM [facility] Ondansetron HCl (Zofran Inj) 4 mg IVP Q6HR PRN PRN Reason: Nausea / Vomiting Pantoprazole Sodium (Protonix) 40 mg IVP QDAC [facility] Last Admin: 02/18/19 06:12 Dose: 40 mg Methylphenidate Er (36 Mg) 2 each PO DAILY [facility] Last Admin: 02/18/19 10:28 Dose: 2 each Polyethylene Glycol (Miralax) 17 gm PO DAILY [facility] Last Admin: 02/18/19 09:45 Dose: Not Given Promethazine HCl (Phenergan Inj) 25 mg IM Q6HR PRN PRN Reason: Nausea / Vomiting Sodium Chloride (Normal Saline Flush 0.9%) 10 ml IVP PRN PRN PRN Reason: NEEDED PER PROVIDER ORDERS Last Admin: 02/18/19 06:12 Dose: 10 ml Sodium Chloride (Normal Saline Flush 0.9%) 10 ml IVP 0100,0900,1700 [facility] Last Admin: 02/18/19 11:05 Dose: Not Given Venlafaxine HCl (Effexor Er) 37.5 mg PO DAILY [facility] Last Admin: 02/18/19 10:28 Dose: 37.5 mg Brexpiprazole [Rexulti] 0.5 mg PO DAILY 02/16/19 Methylphenidate HCl [Methylphenidate ER] 52 mg PO DAILY 02/16/19 Mirtazapine 45 mg PO DAILY PM 02/16/19 Venlafaxine ER [Effexor ER] 37.5 mg PO DAILY 02/16/19 Objective - Vital Signs/Intake & Output Reviewed Vital Signs: Yes Vital Signs: Vital Signs x48h Temp Pulse Resp BP Pulse Ox 02/18/19 15:40 37.1 C 63 20 130/73 100 02/18/19 12:25 36.7 C 72 18 125/74 100 02/18/19 08:28 36.8 C 58 L 18 116/69 Intake & Output: Intake & Output 02/15/19 02/16/19 02/17/19 02/18/19 23:59 23:59 23:59 23:59 Intake Total 4350.5 7077 3490 Output Total 850 9175 4200 Balance 3500.5 -2098 -710 - Objective General Appearance: positive: No acute distress, Alert. negative: Lethargic Eyes Bilateral: positive: Normal inspection, PERRL, No lid inflammation, Conjunctivae nml ENT: positive: ENT inspection nml, Pharynx nml, No signs of dehydration. negative: Purulent nasal drainage, Pharyngeal erythema, Oral lesions Neck: positive: Nml inspection, Thyroid nml, No JVD, Trachea midline. negative: Thyromegaly, Lymphadenopathy (R), Lymphadenopathy (L), Stiff neck, Swelling/bruising, Tracheal deviation Respiratory: positive: Chest non-tender, No respiratory distress, Breath sounds nml. negative: Wheezes, Rales, Rhonchi Cardiovascular: positive: Regular rate & rhythm, No murmur, No gallop. negative: Irregularly irregular, Extrasystoles, Tachycardia, Bradycardia, JVD present, Systolic murmur, Diastolic murmur Peripheral Pulses: 2+ Radial (R), 2+ Radial (L), 2+ Dorsalis pedis (R), 2+ Dorsalis pedis (L) Abdomen: positive: Non-tender, No organomegaly, Nml bowel sounds, No distention. negative: Tenderness, Guarding, Rebound Back: positive: Nml inspection. negative: CVA tenderness (R), CVA tenderness (L) Skin: positive: Color nml, No rash, Warm, Dry. negative: Cyanosis, Diaphoresis, Pallor Extremities: positive: Non-tender, Full ROM, Nml appearance. negative: Calf tenderness, Joint swelling, Jared's sign/cords Neurologic/Psychiatric: positive: Oriented x3, Sensation nml. negative: Weakness, Sensory loss, Facial droop, Slurred/abnml speech, Depressed mood/affect - Lab Results Fish Bones: 02/18/19 06:21 02/18/19 06:21 Other Labs: Lab Results x24hrs 02/18/19 02/18/19 02/18/19 Range/Units 14:02 06:21 06:21 WBC (4.8-10.8) x10^3/uL RBC (4.70-6.10) 10^6/uL Hgb (14.0-18.0) g/dL Hct (42.0-52.0) % MCV (80.0-94.0) fL MCH (27.0-31.0) pg MCHC (32.0-36.0) g/dL RDW (12.0-15.0) % Plt Count (130-450) 10^3/uL MPV (7.4-11.4) fL Neut # (Auto) (1.5-6.6) 10^3/uL Lymph # (Auto) (1.5-3.5) 10^3/uL [place] # (Auto) (0.0-1.0) 10^3/uL Eos # (Auto) (0.0-0.7) 10^3/uL Baso # (Auto) (0.0-0.1) 10^3/uL Absolute Nucleated RBC x10^3/uL Nucleated RBC % /100WBC Sodium 139 (135-145) mmol/L Potassium 4.4 (3.5-5.0) mmol/L Chloride 107 (101-111) mmol/L Carbon Dioxide 23 (21-32) mmol/L Anion Gap 9.0 (6-13) BUN 20 (6-20) mg/dL Creatinine 1.0 (0.6-1.2) mg/dL Estimated GFR (MDRD) 85 L (>89) Glucose 97 (70-100) mg/dL Calcium 8.5 (8.5-10.3) mg/dL Total Bilirubin 0.8 (0.2-1.0) mg/dL AST 51 H (10-42) IU/L ALT 39 (10-60) IU/L Alkaline Phosphatase 47 (42-121) IU/L Total Creatine Kinase 1227 H* 1114 H* (22-269) IU/L Total Protein 6.1 L (6.7-8.2) g/dL Albumin 3.7 (3.2-5.5) g/dL Globulin 2.4 (2.1-4.2) g/dL Albumin/Globulin Ratio 1.5 (1.0-2.2) 02/18/19 Range/Units 06:21 WBC 9.1 (4.8-10.8) x10^3/uL RBC 3.84 L (4.70-6.10) 10^6/uL Hgb 11.8 L (14.0-18.0) g/dL Hct 35.7 L (42.0-52.0) % MCV 92.8 (80.0-94.0) fL MCH 30.7 (27.0-31.0) pg MCHC 33.0 (32.0-36.0) g/dL RDW 13.8 (12.0-15.0) % Plt Count 193 (130-450) 10^3/uL MPV 8.5 (7.4-11.4) fL Neut # (Auto) 5.5 (1.5-6.6) 10^3/uL Lymph # (Auto) 2.7 (1.5-3.5) 10^3/uL [place] # (Auto) 0.8 (0.0-1.0) 10^3/uL Eos # (Auto) 0.1 (0.0-0.7) 10^3/uL Baso # (Auto) 0.0 (0.0-0.1) 10^3/uL Absolute Nucleated RBC 0.00 x10^3/uL Nucleated RBC % 0.0 /100WBC Sodium (135-145) mmol/L Potassium (3.5-5.0) mmol/L Chloride (101-111) mmol/L Carbon Dioxide (21-32) mmol/L Anion Gap (6-13) BUN (6-20) mg/dL Creatinine (0.6-1.2) mg/dL Estimated GFR (MDRD) (>89) Glucose (70-100) mg/dL Calcium (8.5-10.3) mg/dL Total Bilirubin (0.2-1.0) mg/dL AST (10-42) IU/L ALT (10-60) IU/L Alkaline Phosphatase (42-121) IU/L Total Creatine Kinase (22-269) IU/L Total Protein (6.7-8.2) g/dL Albumin (3.2-5.5) g/dL Globulin (2.1-4.2) g/dL Albumin/Globulin Ratio (1.0-2.2) ABX Reporting Has patient been on IV antibiotics over the past 48 hours?: No Sepsis Event Note (H) - Evaluation Current Stage of Sepsis: Ruled out Assessment/Plan - Problem List (1) Acute kidney injury Impression: 02/18 resolved. creatinine is 1 now, continue hydration 02/17 pt's creatinine is down to 2.1 from 6, great improved continue IVF of NS lab monitor hold home meds now pt has creatinine at 6, pt had 0.9 on 2016. pt had a new medication Rexulti for two weeks, increase dosage for two days. Rexulti did have side effect of increase CK. Pt report he has vomiting and diarrhea, and concern for dehydration. CK is over 700. Hold pt's home medication now start IVF of 250ml per hour. pt has no hx of cardiac problem. lab monitor and tele monitor (2) History of depression and ADD Conclusion/Plan: 02/18 reconcile pt's home but hold Rexulti 02/17 hold home meds today for renal function recovery pt and his mother agree the treatment plan pt has hx of depression. For his CRISTI, pt's home medication is holding now. will reconcile when pt's renal function improved significantly. pt and pt's mother understand and agree the plan. (3) Nausea vomiting and diarrhea Conclusion/Plan: resolved no more N/V/D. PRN Zofran continue IVF of NS lab monitor (4) elevated CK 02/18 pt's CK is still continuing elevated. Rexulti's side effect is believed to be the cause. hold Rexulti continue check CK pt has slight elevated CK, it appear caused by his medication to affect his muscle. Rexulti did have side effect of increase CK. hold home meds IVF of NS recheck lab (5) loss of appetite unknown etiology, may be caused by current illness consult with surgical corsetier continue encourage pt drink and eat enough and keep hydration.
[2019-02-19] MEDS: SODIUM CHLORIDE 0.9% 1,000 ML IV SCH (04:49)
[2019-02-19] MEDS: SODIUM CHLORIDE FLUSH 0.9% 10 ML SYRINGE IVP PRN (05:53)
[2019-02-19] MEDS: PANTOPRAZOLE 40 MG VIAL IVP SCH (05:53)
[2019-02-19 06:01] LABS: BASOPHILS % (AUTO) 0.2 %; EOSINOPHILS # (AUTO) 0.2 10^3/uL (0.0-0.7); EOSINOPHILS % (AUTO) 2.3 %; HGB - HEMOGLOBIN 11.8 g/dL (14.0-18.0); LYMPHOCYTES # (AUTO) 2.8 10^3/uL (1.5-3.5); LYMPHOCYTES % (AUTO) 34.4 %; MEAN CORPUSCULAR HEMOGLOBIN 31.5 pg (27.0-31.0); MEAN CORPUSCULAR VOLUME 89.9 fL (80.0-94.0); MEAN PLATELET VOLUME 7.9 fL (7.4-11.4); MONOCYTES # (AUTO) 0.6 10^3/uL (0.0-1.0); MONOCYTES % (AUTO) 7.3 %; NEUTROPHILS # (AUTO) 4.5 10^3/uL (1.5-6.6); NEUTROPHILS % (AUTO) 55.8 %; PLT - PLATELET COUNT 190 10^3/uL (130-450); RED BLOOD COUNT 3.76 10^6/uL (4.70-6.10); RED CELL DISTRIBUTION WIDTH 13.3 % (12.0-15.0)
[2019-02-19 06:14] LABS: ALBUMIN 3.8 g/dL (3.2-5.5); ALBUMIN/GLOBULIN RATIO 1.6 (1.0-2.2); BILIRUBIN,TOTAL 0.8 mg/dL (0.2-1.0); CALCIUM 8.7 mg/dL (8.5-10.3); TOTAL PROTEIN 6.2 g/dL (6.7-8.2)
[2019-02-19 08:45] VITALS: BP 137/84
[2019-02-19] MEDS: VENLAFAXINE ER 37.5 MG CAPSULE PO SCH (09:18)
[2019-02-19] MEDS: POLYETHYLENE GLYCOL 3350 17 GM PACKET PO SCH (09:18)
--- NOTE | 2019-02-19 10:27 | Discharge Plan ---
Discharge Plan Disposition: 01 Home, Self Care Condition: Stable Diet: Regular Activity Restrictions: Activity as Tolerated Shower Restrictions: No (fall precaution) Instruction Topics: Brexpiprazole oral tablets Additional Instructions or Follow Up instructions: You may followup your psychiatrist in one week, and followup your PCP in one to two weeks. Your kidney function return to normal now. The creatinine is 1.0 now from 6.0 at the admission. Your Rexulti is hold now due to it's side effects. Please keep hydration at home. It is very important for you to keep the normal renal function. Please discuss with your psychiatrist about your medication regimen. Should your symptoms return or worsen, you may present ER, call 911 or your PCP for help. No Smoking: If you smoke, Please STOP! Call for help. Follow-up with: Lior Reyez MD [Primary Care Provider] -
--- NOTE | 2019-02-19 10:41 | DISCHARGE SUMMARY ---
Discharge Summary Discharge Date: 02/19/19 Discharging Provider: MARIO Primary Care Provider: Lior Kirby Code Status: Attempt Resuscitation Condition at Discharge: Stable Discharge Disposition: 01 Home, Self Care Discharge Facility Name: home - DIAGNOSES Admission Diagnoses: (1) Acute kidney injury (2) History of depression (3) Nausea vomiting and diarrhea Discharge Diagnoses with Status of Each Condition: Acute kidney injury (2) History of depression (3) Nausea vomiting and diarrhea (4) elevated CK - HPI History of Present Illness: Mr. Rucker is 38-yrs-old male with a PMH significant for depression, who present ER for complaint of vomiting and weakness. Pt report he had nausea and vomiting that has been ongoing for the past 2 days " I can not get down anything, then it immediately vomit back up." Pt report he had one episode sickness like this before but it went away quickly. But this time he continue nausea and vomiting, and with cold sweating, and his vomiting did not go away. He denies fever, cough, chest pain, or abdominal pain. Pt denies dysurine or hematouria. pt comes in concerned about his dehydration today. Pt also report his urine output is decreased. pt had no urine from last night until he was arrival to hospital. After pt was treat with IVF of NS in ER. Pt had twice urination in ER. Pt report his psychiatrist recently increased his medication, Rexulti from 0.5 mg to 1mg for two days. Pt started Rexulti 0.5 mg for two weeks ago, per pt report. Pt's BUN and creatinine of 53 and 6.0. Pt's creatinine is 0.9 at 2017. His lactate level elevated at 2.4, and his creatine kinase is at 735. His White count elevated at 23.7. Pt was initially tachycardia then HR is down to 80-99, otherwise pt is hemodynamic stable. pt is admitted for [facility] Hospital Course: Acute kidney injury resolved. pt's creatinine is 1.0 now. pt feel much better, and strongly request to be d/c today. advise pt keep hydration all the time. followup PCP and his psychiatrist to adjust medications to avoid renal side effects. (2) History of depression stable, hold rexulit. it seems rexulit has the side to cause elevated CK. advise to followup his psychiatrist to adjust medications to avoid renal side effects. (3) Nausea vomiting and diarrhea resolved. advise pt keep hydration all the time. (4) elevated CK CK is running down. hold rexulit. it seems rexulit has the side to cause elevated CK. advise to followup his psychiatrist to adjust medications to avoid renal side effects. pt strongly request to be d/c to home today. - ALLERGIES Allergies/Adverse Reactions: Allergies Allergy/AdvReac Type Severity Reaction Status Date / Time venom-wasp Allergy Anaphylaxis Verified 02/16/19 11:53 - MEDICATIONS Home Medications: Ambulatory Orders Medication Instructions Recorded Confirmed Methylphenidate HCl 52 mg PO DAILY 02/16/19 02/16/19 [Methylphenidate ER] Mirtazapine 45 mg PO DAILY PM 02/16/19 02/16/19 Venlafaxine ER [Effexor ER] 37.5 mg PO DAILY 02/16/19 02/16/19 - PHYSICAL EXAM AT DISCHARGE General Appearance: positive: No acute distress, Alert. negative: Lethargic Eyes Bilateral: positive: Normal inspection, PERRL, No lid inflammation, Conjunctivae nml ENT: positive: ENT inspection nml, Pharynx nml, No signs of dehydration. negative: Purulent nasal drainage, Pharyngeal erythema, Oral lesions Neck: positive: Nml inspection, Thyroid nml, No JVD, Trachea midline. negative: Thyromegaly, Lymphadenopathy (R), Lymphadenopathy (L), Stiff neck, Swelling/bruising, Tracheal deviation Respiratory: positive: Chest non-tender, No respiratory distress, Breath sounds nml. negative: Wheezes, Rales, Rhonchi Cardiovascular: positive: Regular rate & rhythm, No murmur, No gallop. negative: Irregularly irregular, Extrasystoles, Tachycardia, Bradycardia, JVD present, Systolic murmur, Diastolic murmur Peripheral Pulses: positive: 2+ Abdomen: positive: Non-tender, No organomegaly, Nml bowel sounds, No distention. negative: Tenderness, Guarding, Rebound Back: positive: Nml inspection. negative: CVA tenderness (R), CVA tenderness (L) Skin: positive: Color nml, No rash, Warm, Dry. negative: Cyanosis, Diaphoresis, Pallor Extremities: positive: Non-tender, Full ROM, Nml appearance. negative: Calf tenderness, Joint swelling, Jared's sign/cords Neurologic/Psychiatric: positive: Oriented x3, Motor nml, Sensation nml. negative: Weakness, Sensory loss, Facial droop, Slurred/abnml speech - LABS Result Diagrams: 02/19/19 05:45 02/19/19 05:45 - SEPSIS Current Stage of Sepsis: Ruled out - FOLLOW UP Follow Up: You may followup your psychiatrist in one week, and followup your PCP in one to two weeks. Your kidney function return to normal now. The creatinine is 1.0 now from 6.0 at the admission. Your Rexulti is hold now due to it's side effects. Please keep hydration at home. It is very important for you to keep the normal renal function. Please discuss with your psychiatrist about your medication regimen. Should your symptoms return or worsen, you may present ER, call 911 or your PCP for help. - TIME SPENT Time Spent in Discharge (Minutes): 55
== END 2019-02-19 11:30 | disposition home or self-care (01) | DRG 683 ==
LOC: ED 11:35 → MS2 17:25
PROVIDERS: ADMIT Nurse Practitioner Gerontology; ATTEND Nurse Practitioner Gerontology
DX: N17.9 Acute kidney failure, unspecified (principal); Z68.1 Body mass index [BMI] 19.9 or less, adult; E86.0 Dehydration; R11.2 Nausea with vomiting, unspecified; F32.9 Major depressive disorder, single episode, unspecified; Z91.030 Bee allergy status; R19.7 Diarrhea, unspecified; R00.0 Tachycardia, unspecified; F98.8 Other specified behavioral and emotional disorders with onset usually occurring in childhood and adolescence; R63.0 Anorexia; T50.995A Adverse effect of other drugs, medicaments and biological substances, initial encounter
CPT/HCPCS: 36415; 76770; 80053; 81001; 82550; 83605; 83690; 85025; 87040; 96361; 96365; 96375; 99284; A9270; 81003; 87086

== ENCOUNTER 2019-04-20 08:00 | Outpatient (CLI) | payer OTHER ==
[2019-04-20 20:00] LABS: ALBUMIN 4.7 g/dL (3.2-5.5); ALBUMIN/GLOBULIN RATIO 1.6 (1.0-2.2); BILIRUBIN,TOTAL 0.9 mg/dL (0.2-1.0); CALCIUM 9.6 mg/dL (8.5-10.3); CREATININE 1.1 mg/dL (0.6-1.2); TOTAL PROTEIN 7.7 g/dL (6.7-8.2)
== END 2019-04-20 23:59 | disposition home or self-care (01) ==
LOC: LAB.WCP 08:00
PROVIDERS: ATTEND Family Medicine
DX: E23.2 Diabetes insipidus (principal)
CPT/HCPCS: 36415; 80053; 83930; 83935; 84443

== ENCOUNTER 2019-05-08 14:30 | Emergency (ER) | payer OTHER ==
--- NOTE | 2019-05-08 14:48 | ED Physician Documentation ---
PD HPI MHE - Stated complaint Stated Complaint: MHE - Chief complaint Chief Complaint: MHE - History obtained from History obtained from: Patient - History of Present Illness Primary symptom: Suicidal ideation (38-year-old gentleman brought in by 's deputy because he was hanging off of the side of the [place] pressed bridge. He is kind of rambling historian and seems fairly manic. He says for the last week he has been talking to the leaves in the trees. He is not sure if anyone is listening. He denies drug use except for marijuana which she does use heavily. He does drink occasionally but not heavily. He initially says that this was not a suicide attempt but then later admits that hanging on the off of the side of the bridge, "I did not realize it would be so hard to do it." And then he asks for help.) Review of Systems Ten Systems: 10 systems reviewed and negative Constitutional: denies: Fever, Chills GI: denies: Abdominal Pain, Nausea, Vomiting : denies: Dysuria, Frequency PD PAST MEDICAL HISTORY - Past Medical History Past Medical History: Yes Endocrine/Autoimmune: None Psych: Depression - Past Surgical History Past Surgical History: No - Present Medications Home Medications: Ambulatory Orders Medication Instructions Recorded Confirmed Methylphenidate HCl 52 mg PO DAILY 02/16/19 02/16/19 [Methylphenidate ER] Mirtazapine 45 mg PO DAILY PM 02/16/19 02/16/19 Venlafaxine ER [Effexor ER] 37.5 mg PO DAILY 02/16/19 02/16/19 - Allergies Allergies/Adverse Reactions: Allergies Allergy/AdvReac Type Severity Reaction Status Date / Time venom-wasp Allergy Anaphylaxis Verified 02/16/19 11:53 - Social History Does the pt smoke?: No Smoking Status: Never smoker Does the pt drink ETOH?: No Does the pt have substance abuse?: Yes Substance Use and Type: Marijuana - Family History Family history: reports: Non contributory - Immunizations Immunizations are current?: Yes - POLST Patient has POLST: No POLST Status: Full Code PD ED PE NORMAL - Vitals Vital signs reviewed: Yes - General General: Alert and oriented X 3 (Pressured and manic speech, but cooperative and pleasant. Somewhat delusional.) - HEENT HEENT: PERRL, EOMI - Neck Neck: Supple, no meningeal sign, No bony TTP - Cardiac Cardiac: RRR, No murmur - Respiratory Respiratory: No respiratory distress, Clear bilaterally - Abdomen Abdomen: Normal bowel sounds, Soft, Non tender - Back Back: No CVA TTP, No spinal TTP - Derm Derm: Normal color, Warm and dry - Extremities Extremities: No edema, No calf tenderness / cord - Neuro Neuro: Alert and oriented X 3, Normal speech Results - Vitals Vitals: Vital Signs - 24 hr 05/08/19 05/08/19 05/08/19 14:41 14:45 18:16 Temperature 37.4 C Heart Rate 84 88 74 Respiratory 18 18 18 Rate Blood Pressure 139/94 H 140/62 H 140/62 H O2 Saturation 98 97 99 Oxygen O2 Source Room air - Labs Labs: Laboratory Tests 05/08/19 05/08/19 05/08/19 14:45 14:55 14:55 WBC 9.4 RBC 4.31 L Hgb 13.3 L Hct 40.1 L MCV 93.0 MCH 30.9 MCHC 33.2 RDW 13.4 Plt Count 326 MPV 10.0 Neut # (Auto) 7.5 H Lymph # (Auto) 1.1 L [place] # (Auto) 0.7 Eos # (Auto) 0.0 Baso # (Auto) 0.0 Absolute Nucleated RBC 0.00 Nucleated RBC % 0.0 Sodium 143 Potassium 3.6 Chloride 106 Carbon Dioxide 25 Anion Gap 12.0 BUN 12 Creatinine 1.3 H Estimated GFR (MDRD) 62 L Glucose 104 H Calcium 9.8 Total Bilirubin 0.8 AST 30 ALT 20 Alkaline Phosphatase 65 Total Creatine Kinase 433 H Total Protein 8.2 Albumin 5.2 Globulin 3.0 Albumin/Globulin Ratio 1.7 Lipase 28 TSH Urine Color YELLOW Urine Clarity CLEAR Urine pH 6.5 Ur Specific [place] 1.025 Urine Protein TRACE Urine Glucose (UA) 250 H Urine Ketones TRACE Urine Occult Blood NEGATIVE Urine Nitrite NEGATIVE Urine Bilirubin NEGATIVE Urine Urobilinogen 1 (NORMAL) Ur Leukocyte Esterase NEGATIVE Ur Microscopic Review NOT INDICATED Urine Culture Comments NOT INDICATED Salicylates < 6.0 Urine Opiates Screen NEGATIVE Ur Oxycodone Screen NEGATIVE Urine Methadone Screen NEGATIVE Ur Propoxyphene Screen NEGATIVE Acetaminophen < 10 L Ur Barbiturates Screen NEGATIVE Ur Tricyclics Screen NEGATIVE Ur Phencyclidine Scrn NEGATIVE Ur Amphetamine Screen NEGATIVE U Methamphetamines Scrn NEGATIVE U Benzodiazepines Scrn NEGATIVE Urine Cocaine Screen NEGATIVE U Cannabinoids Screen POSITIVE H Ethyl Alcohol < 5.0 05/08/19 14:55 WBC RBC Hgb Hct MCV MCH MCHC RDW Plt Count MPV Neut # (Auto) Lymph # (Auto) [place] # (Auto) Eos # (Auto) Baso # (Auto) Absolute Nucleated RBC Nucleated RBC % Sodium Potassium Chloride Carbon Dioxide Anion Gap BUN Creatinine Estimated GFR (MDRD) Glucose Calcium Total Bilirubin AST ALT Alkaline Phosphatase Total Creatine Kinase Total Protein Albumin Globulin Albumin/Globulin Ratio Lipase TSH 0.41 Urine Color Urine Clarity Urine pH Ur Specific [place] Urine Protein Urine Glucose (UA) Urine Ketones Urine Occult Blood Urine Nitrite Urine Bilirubin Urine Urobilinogen Ur Leukocyte Esterase Ur Microscopic Review Urine Culture Comments Salicylates Urine Opiates Screen Ur Oxycodone Screen Urine Methadone Screen Ur Propoxyphene Screen Acetaminophen Ur Barbiturates Screen Ur Tricyclics Screen Ur Phencyclidine Scrn Ur Amphetamine Screen U Methamphetamines Scrn U Benzodiazepines Scrn Urine Cocaine Screen U Cannabinoids Screen Ethyl Alcohol PD MEDICAL DECISION MAKING - ED course ED course: 38-year-old gentleman presents accompanied by 's deputy for suicidal ideation, and seemingly some manic behavior. He is cooperative here. Initially evaluated by social work who felt that the DCR should be called. The DCR assessed him and felt that he was voluntary and deferred back to the high school social studies tutor in the morning for placement although mentioned that if the patient eloped the DCR should be re-dispatched. Departure - Departure Clinical Impression: Depression Qualifiers: Depression Type: major depressive disorder Major depression recurrence: recurrent Active/Remission status: currently active Major depression episode severity: severe Psychotic features: with psychotic features Qualified Code(s): F33.3 - Major depressive disorder, recurrent, severe with psychotic symptoms
[2019-05-08 15:04] LABS: BASOPHILS % (AUTO) 0.4 %; EOSINOPHILS % (AUTO) 0.2 %; HGB - HEMOGLOBIN 13.3 g/dL (14.0-18.0); LYMPHOCYTES # (AUTO) 1.1 10^3/uL (1.5-3.5); MEAN CORPUSCULAR HEMOGLOBIN 30.9 pg (27.0-31.0); MEAN CORPUSCULAR HGB CONC 33.2 g/dL (32.0-36.0); MONOCYTES # (AUTO) 0.7 10^3/uL (0.0-1.0); MONOCYTES % (AUTO) 7.3 %; NEUTROPHILS # (AUTO) 7.5 10^3/uL (1.5-6.6); NEUTROPHILS % (AUTO) 79.9 %; PLT - PLATELET COUNT 326 10^3/uL (130-450); RED BLOOD COUNT 4.31 10^6/uL (4.70-6.10); RED CELL DISTRIBUTION WIDTH 13.4 % (12.0-15.0); WHITE BLOOD COUNT 9.4 x10^3/uL (4.8-10.8)
[2019-05-08 15:15] LABS: ACETAMINOPHEN < 10 ug/mL (10-30); ALBUMIN 5.2 g/dL (3.2-5.5); ALBUMIN/GLOBULIN RATIO 1.7 (1.0-2.2); ALKALINE PHOSPHATASE 65 IU/L (42-121); ALT ALANINE AMINOTRANSFERASE 20 IU/L (10-60); AST ASPARTATE AMINOTRANSFERASE 30 IU/L (10-42); BILIRUBIN,TOTAL 0.8 mg/dL (0.2-1.0); BUN - BLOOD UREA NITROGEN 12 mg/dL (6-20); CALCIUM 9.8 mg/dL (8.5-10.3); CARBON DIOXIDE - CO2 25 mmol/L (21-32); CHLORIDE 106 mmol/L (101-111); CK- CREATINE KINASE 433 IU/L (22-269); CREATININE 1.3 mg/dL (0.6-1.2); GFR - MDRD 62 (>89); GLUCOSE 104 mg/dL (70-100); LIPASE 28 U/L (22-51); SALICYLATE < 6.0 mg/dL; SODIUM 143 mmol/L (135-145); TOTAL PROTEIN 8.2 g/dL (6.7-8.2)
[2019-05-08 15:19] LABS: MUDS CUTOFF CONCENTRATIONS CUTOFF CONC BELOW:
[2019-05-08 15:22] LABS: BILIRUBIN,URINE NEGATIVE (NEGATIVE); GLUCOSE, URINE (UA) 250 mg/dL (NEGATIVE); KETONES,URINE (UA) TRACE mg/dL (NEGATIVE); LEUKOCYTE ESTERASE, URINE NEGATIVE (NEGATIVE); NITRITE,URINE NEGATIVE (NEGATIVE); OCCULT BLOOD,URINE NEGATIVE (NEGATIVE); PH,URINE 6.5 PH (5.0-7.5); PROTEIN,URINE TRACE mg/dL (NEGATIVE); UROBILINOGEN,URINE 1 (NORMAL) E.U./dL (NORMAL)
[2019-05-08 15:27] LABS: CLARITY,URINE CLEAR (CLEAR)
[2019-05-08 15:33] LABS: AMPHETAMINE SCREEN,URINE NEGATIVE (NEGATIVE); BENZODIAZEPINES SCREEN, URINE NEGATIVE (NEGATIVE); COCAINE SCREEN URINE NEGATIVE (NEGATIVE); METHADONE SCREEN, URINE NEGATIVE (NEGATIVE); METHAMPHETAMINES SCREEN, URINE NEGATIVE (NEGATIVE); OPIATE SCREEN, URINE NEGATIVE (NEGATIVE); TRICYCLIC ANTIDEPRESSANT,URINE NEGATIVE (NEGATIVE)
[2019-05-08 15:34] LABS: OXYCODONE SCREEN, URINE NEGATIVE (NEGATIVE); PROPOXYPHENE SCREEN, URINE NEGATIVE (NEGATIVE)
[2019-05-09 06:01] VITALS: BP 138/77
--- NOTE | 2019-05-09 12:34 | ED Physician Documentation ---
ED Addendum - Addendum Addendum: 05/09/19 12:33 Patient accepted to [facility] by Dr. Mendez 1230. COBRA forms filled out. Patient will be transferred This document was made in part using voice recognition software. While efforts are made to proofread this document, sound alike and grammatical errors may occur. Departure - Departure Disposition: 65 Psych Hosp/Unit DC/Xfer Clinical Impression: Depression Qualifiers: Depression Type: major depressive disorder Major depression recurrence: recurrent Active/Remission status: currently active Major depression episode severity: severe Psychotic features: with psychotic features Qualified Code(s): F33.3 - Major depressive disorder, recurrent, severe with psychotic symptoms Condition: Stable
== END 2019-05-09 13:43 ==
LOC: ED 14:30
DX: F33.3 Major depressive disorder, recurrent, severe with psychotic symptoms (principal)
CPT/HCPCS: 36415; 80053; 80306; 80307; 80320; 80329; 81001; 81003; 82550; 83690; 84443; 85025; 87086; 99284; 99285

== ENCOUNTER 2019-06-30 08:00 | Outpatient (CLI) | payer OTHER ==
[2019-06-30 19:02] LABS: BASOPHILS # (AUTO) 0.1 10^3/uL (0.0-0.1); BASOPHILS % (AUTO) 0.6 %; EOSINOPHILS # (AUTO) 0.2 10^3/uL (0.0-0.7); EOSINOPHILS % (AUTO) 2.2 %; HGB - HEMOGLOBIN 14.5 g/dL (14.0-18.0); LYMPHOCYTES # (AUTO) 1.7 10^3/uL (1.5-3.5); LYMPHOCYTES % (AUTO) 19.3 %; MEAN CORPUSCULAR VOLUME 96.7 fL (80.0-94.0); MEAN PLATELET VOLUME 10.5 fL (7.4-11.4); MONOCYTES # (AUTO) 0.6 10^3/uL (0.0-1.0); MONOCYTES % (AUTO) 6.2 %; NEUTROPHILS # (AUTO) 6.4 10^3/uL (1.5-6.6); NEUTROPHILS % (AUTO) 71.4 %; PLT - PLATELET COUNT 292 10^3/uL (130-450); RED BLOOD COUNT 4.83 10^6/uL (4.70-6.10); RED CELL DISTRIBUTION WIDTH 13.8 % (12.0-15.0); WHITE BLOOD COUNT 8.9 x10^3/uL (4.8-10.8)
[2019-06-30 19:18] LABS: ALBUMIN 4.8 g/dL (3.2-5.5); ALBUMIN/GLOBULIN RATIO 1.6 (1.0-2.2); BILIRUBIN,TOTAL 0.5 mg/dL (0.2-1.0); CALCIUM 9.6 mg/dL (8.5-10.3); TOTAL PROTEIN 7.8 g/dL (6.7-8.2)
== END 2019-06-30 23:59 | disposition home or self-care (01) ==
LOC: LAB.WCP 08:00
PROVIDERS: ATTEND Family Medicine
DX: F33.1 Major depressive disorder, recurrent, moderate (principal); E23.2 Diabetes insipidus
CPT/HCPCS: 36415; 80053; 84443; 85025

== ENCOUNTER 2019-07-06 16:03 | Emergency (ER) | payer OTHER ==
[2019-07-06 16:17] VITALS: BP 111/63
[2019-07-06 16:41] LABS: BASOPHILS % (AUTO) 0.4 %; EOSINOPHILS # (AUTO) 0.1 10^3/uL (0.0-0.7); LYMPHOCYTES # (AUTO) 2.1 10^3/uL (1.5-3.5); LYMPHOCYTES % (AUTO) 18.5 %; MEAN CORPUSCULAR HEMOGLOBIN 30.2 pg (27.0-31.0); MEAN CORPUSCULAR HGB CONC 33.5 g/dL (32.0-36.0); MEAN CORPUSCULAR VOLUME 90.3 fL (80.0-94.0); MEAN PLATELET VOLUME 9.6 fL (7.4-11.4); MONOCYTES # (AUTO) 0.6 10^3/uL (0.0-1.0); MONOCYTES % (AUTO) 4.9 %; NEUTROPHILS # (AUTO) 8.4 10^3/uL (1.5-6.6); NEUTROPHILS % (AUTO) 74.9 %; PLT - PLATELET COUNT 276 10^3/uL (130-450); RED BLOOD COUNT 4.63 10^6/uL (4.70-6.10); RED CELL DISTRIBUTION WIDTH 12.8 % (12.0-15.0); WHITE BLOOD COUNT 11.2 x10^3/uL (4.8-10.8)
[2019-07-06 16:58] LABS: ACETAMINOPHEN < 10 ug/mL (10-30); ALBUMIN 4.7 g/dL (3.2-5.5); ALBUMIN/GLOBULIN RATIO 1.4 (1.0-2.2); ALKALINE PHOSPHATASE 60 IU/L (42-121); ALT ALANINE AMINOTRANSFERASE 26 IU/L (10-60); AST ASPARTATE AMINOTRANSFERASE 21 IU/L (10-42); BILIRUBIN,TOTAL 0.7 mg/dL (0.2-1.0); BUN - BLOOD UREA NITROGEN 14 mg/dL (6-20); CALCIUM 9.1 mg/dL (8.5-10.3); CARBON DIOXIDE - CO2 23 mmol/L (21-32); CHLORIDE 97 mmol/L (101-111); CREATININE 0.8 mg/dL (0.6-1.2); GFR - MDRD 109 (>89); GLUCOSE 90 mg/dL (70-100); LIPASE 22 U/L (22-51); SALICYLATE < 6.0 mg/dL; SODIUM 134 mmol/L (135-145)
== END 2019-07-06 17:19 | disposition left against medical advice (07) ==
LOC: ED 16:03
DX: Z53.21 Procedure and treatment not carried out due to patient leaving prior to being seen by health care provider (principal)
CPT/HCPCS: 36415; 80053; 80307; 80320; 80329; 83690; 84443; 85025

== ENCOUNTER 2019-12-27 08:00 | Outpatient (CLI) | payer OTHER ==
[2019-12-27 12:11] LABS: BASOPHILS % (AUTO) 0.6 %; EOSINOPHILS # (AUTO) 0.2 10^3/uL (0.0-0.7); EOSINOPHILS % (AUTO) 2.8 %; HGB - HEMOGLOBIN 13.3 g/dL (14.0-18.0); LYMPHOCYTES # (AUTO) 1.2 10^3/uL (1.5-3.5); LYMPHOCYTES % (AUTO) 22.2 %; MEAN CORPUSCULAR HEMOGLOBIN 29.5 pg (27.0-31.0); MEAN CORPUSCULAR HGB CONC 32.2 g/dL (32.0-36.0); MEAN CORPUSCULAR VOLUME 91.6 fL (80.0-94.0); MEAN PLATELET VOLUME 9.9 fL (7.4-11.4); MONOCYTES # (AUTO) 0.5 10^3/uL (0.0-1.0); MONOCYTES % (AUTO) 9.7 %; NEUTROPHILS # (AUTO) 3.4 10^3/uL (1.5-6.6); NEUTROPHILS % (AUTO) 64.1 %; PLT - PLATELET COUNT 234 10^3/uL (130-450); RED BLOOD COUNT 4.51 10^6/uL (4.70-6.10); RED CELL DISTRIBUTION WIDTH 12.9 % (12.0-15.0); WHITE BLOOD COUNT 5.4 x10^3/uL (4.8-10.8)
[2019-12-27 12:25] LABS: ALBUMIN 4.5 g/dL (3.2-5.5); ALBUMIN/GLOBULIN RATIO 1.6 (1.0-2.2); CALCIUM 9.6 mg/dL (8.5-10.3); CREATININE 1.3 mg/dL (0.6-1.2); TOTAL PROTEIN 7.4 g/dL (6.7-8.2)
== END 2019-12-27 23:59 | disposition home or self-care (01) ==
LOC: LAB.WCP 08:00
PROVIDERS: ATTEND Family Medicine
DX: Z79.899 Other long term (current) drug therapy (principal)
CPT/HCPCS: 36415; 80053; 84443; 85025

== ENCOUNTER 2020-10-21 17:20 | Outpatient (CLI) | payer OTHER | END 2020-10-21 17:21 | disposition home or self-care (01) | LOC: COV 17:20 | PROVIDERS: ATTEND Family Medicine | DX: Z20.828 Contact with and (suspected) exposure to other viral communicable diseases (principal) ==

== ENCOUNTER 2021-10-16 23:01 | Emergency (ER) | payer OTHER ==
--- NOTE | 2021-10-17 00:11 | ED Physician Documentation ---
PD HPI MHE - Stated complaint Stated Complaint: MHE - Chief complaint Chief Complaint: MHE - History obtained from History obtained from: Patient - History of Present Illness Primary symptom: Psychosis Timing - onset: Chronic Contributing factors: Substance abuse - ETOH, Substance abuse - drugs (cannabis) Similar symptoms before: No diagnosis Recently seen: Admitted - Additional information Additional information: 40 y/o male with a history of depression and substance abuse has recently been in treatment for alcohol and cannabis use. He presents to the ED today with complaints that he is having trouble with feeling that he has to help the people on [employer] even though he knows it is just a video. He denies SI or HI and he states that he feels that his cravings are gone for alcohol and cannabis. 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 Has prior history of TBI and depression and reports an inner dialog that is continuous. Review of Systems Constitutional: denies: Fever Ears: denies: Ear pain Nose: denies: Congestion Throat: denies: Sore throat Cardiac: denies: Chest pain / pressure Respiratory: denies: Dyspnea, Cough GI: denies: Abdominal Pain, Nausea, Vomiting, Constipation, Diarrhea : denies: Dysuria, Frequency Skin: denies: Rash Musculoskeletal: denies: Neck pain, Back pain Neurologic: denies: Generalized weakness, Focal weakness, Numbness Psychiatric: reports: Depressed, Delusions, Anxiety, Insomnia. denies: Suicidal, Homicidal, Hallucinations Endocrine: denies: Polydypsia, Polyuria PD PAST MEDICAL HISTORY - Past Medical History Past Medical History: Yes Cardiovascular: None Respiratory: None Neuro: None Endocrine/Autoimmune: None GI: None : None HEENT: None Psych: Depression, Anxiety Musculoskeletal: None Derm: None - Past Surgical History Past Surgical History: Yes - Present Medications Home Medications: Ambulatory Orders Medication Instructions Recorded Confirmed Methylphenidate HCl 52 mg PO DAILY 02/16/19 02/16/19 [Methylphenidate ER] Mirtazapine 45 mg PO DAILY PM 02/16/19 02/16/19 Venlafaxine ER [Effexor ER] 37.5 mg PO DAILY 02/16/19 02/16/19 Fluvoxamine Maleate 50 mg PO DAILY #20 tablet 10/17/21 - Allergies Allergies/Adverse Reactions: Allergies Allergy/AdvReac Type Severity Reaction Status Date / Time venom-wasp Allergy Anaphylaxis Verified 02/16/19 11:53 - Social History Does the pt smoke?: Yes Smoking Status: Current every day smoker Does the pt drink ETOH?: No Does the pt have substance abuse?: Yes Substance Use and Type: Marijuana - Immunizations Immunizations are current?: Yes - POLST Patient has POLST: No POLST Status: Full Code PD ED PE NORMAL - Vitals Vital signs reviewed: Yes (normal ) - General General: Alert and oriented X 3, No acute distress, Well developed/nourished - HEENT HEENT: Atraumatic, PERRL, EOMI, Ears normal, Moist mucous membranes, Pharynx benign, Dentition benign - Neck Neck: Supple, no meningeal sign, No bony TTP - Cardiac Cardiac: RRR, No murmur - Respiratory Respiratory: No respiratory distress, Clear bilaterally - Abdomen Abdomen: Normal bowel sounds, Soft, Non tender, Non distended, No organomegaly - Back Back: No CVA TTP, No spinal TTP - Derm Derm: Normal color, Warm and dry, No rash - Extremities Extremities: No deformity, No edema - Neuro Neuro: Alert and oriented X 3, shake splitter 2-12 intact, No motor deficit, No sensory deficit, Normal speech Eye Opening: Spontaneous Motor: Obeys Commands Verbal: Oriented GCS Score: 15 - Psych Psych: Normal mood, Normal affect Results - Vitals Vitals: Vital Signs - 24 hr 10/16/21 23:05 Temperature 37.2 C Heart Rate 85 Respiratory 18 Rate Blood Pressure 130/76 O2 Saturation 100 Oxygen O2 Source Room air - Labs Labs: Laboratory Tests 10/17/21 10/17/21 10/17/21 00:16 00:16 02:40 WBC 8.6 RBC 4.48 L Hgb 14.1 Hct 41.0 L MCV 91.5 MCH 31.5 H MCHC 34.4 RDW 11.6 L Plt Count 285 MPV 10.3 Neut # (Auto) 5.2 Lymph # (Auto) 2.3 [place] # (Auto) 0.8 Eos # (Auto) 0.2 Baso # (Auto) 0.1 Absolute Nucleated RBC 0.00 Nucleated RBC % 0.0 Sodium 137 Potassium 4.1 Chloride 100 L Carbon Dioxide 24 Anion Gap 13.0 BUN 21 H Creatinine 1.4 H Estimated GFR (MDRD) 57 L Glucose 110 H Calcium 9.7 Total Bilirubin 0.7 AST 33 ALT 34 Alkaline Phosphatase 64 Total Protein 8.3 H Albumin 5.3 Globulin 3.0 Albumin/Globulin Ratio 1.8 Lipase 28 Urine Color YELLOW Urine Clarity CLEAR Urine pH 6.0 Ur Specific [place] 1.020 Urine Protein NEGATIVE Urine Glucose (UA) NEGATIVE Urine Ketones NEGATIVE Urine Occult Blood NEGATIVE Urine Nitrite NEGATIVE Urine Bilirubin NEGATIVE Urine Urobilinogen 0.2 (NORMAL) Ur Leukocyte Esterase NEGATIVE Ur Microscopic Review NOT INDICATED Urine Culture Comments NOT INDICATED Urine Opiates Screen NEGATIVE Ur Oxycodone Screen NEGATIVE Urine Methadone Screen NEGATIVE Ur Propoxyphene Screen NEGATIVE Ur Barbiturates Screen NEGATIVE Ur Tricyclics Screen NEGATIVE Ur Phencyclidine Scrn NEGATIVE Ur Amphetamine Screen NEGATIVE U Methamphetamines Scrn NEGATIVE U Benzodiazepines Scrn NEGATIVE Urine Cocaine Screen NEGATIVE U Cannabinoids Screen POSITIVE H Ethyl Alcohol < 5.0 PD MEDICAL DECISION MAKING - ED course Complexity details: reviewed old records, reviewed results, re-evaluated sophia yuen, considered differential, d/w patient ED course: 40 y/o male with vague presentation to the ED is evaluated by telepsych and a diagnosis of obsessive compulsive disorder is made and recommendation to start fluvoxamine. The patient has pre-arranged follow up with psychiatry. The patient found this quite helpful as did I. Departure - Departure Disposition: 01 Home, Self Care Clinical Impression: Obsessive compulsive disorder Qualifiers: Obsessive-compulsive disorder type: mixed obsessional thoughts and acts Qualified Code(s): F42.2 - Mixed obsessional thoughts and acts Condition: Stable Instructions: ED Obsessive Compulsive Disorder Follow-Up: Lior Reyez DO [Primary Care Provider] - Prescriptions: Fluvoxamine Maleate 50 mg PO DAILY #20 tablet Comments: Dalton, today the psychiatrist feels you have an obsessive compulsive disorder and she has recommended we start you on Fluvoxamine 50mg daily. This has been e- scribed to [facility] in [place]. Follow up with the psychiatrist as planned next week and ask about cognative behavioral therapy.
[2021-10-17 00:22] LABS: BASOPHILS # (AUTO) 0.1 10^3/uL (0.0-0.1); BASOPHILS % (AUTO) 0.6 %; EOSINOPHILS # (AUTO) 0.2 10^3/uL (0.0-0.7); EOSINOPHILS % (AUTO) 2.3 %; HGB - HEMOGLOBIN 14.1 g/dL (14.0-18.0); LYMPHOCYTES # (AUTO) 2.3 10^3/uL (1.5-3.5); LYMPHOCYTES % (AUTO) 27.1 %; MEAN CORPUSCULAR HEMOGLOBIN 31.5 pg (27.0-31.0); MEAN CORPUSCULAR HGB CONC 34.4 g/dL (32.0-36.0); MEAN CORPUSCULAR VOLUME 91.5 fL (80.0-94.0); MEAN PLATELET VOLUME 10.3 fL (7.4-11.4); MONOCYTES # (AUTO) 0.8 10^3/uL (0.0-1.0); MONOCYTES % (AUTO) 9.7 %; NEUTROPHILS # (AUTO) 5.2 10^3/uL (1.5-6.6); NEUTROPHILS % (AUTO) 60.2 %; PLT - PLATELET COUNT 285 10^3/uL (130-450); RED BLOOD COUNT 4.48 10^6/uL (4.70-6.10); RED CELL DISTRIBUTION WIDTH 11.6 % (12.0-15.0); WHITE BLOOD COUNT 8.6 x10^3/uL (4.8-10.8)
[2021-10-17] MEDS: THIAMINE 100 MG/1 ML 2 ML MDV IM STA (00:31)
[2021-10-17 00:33] LABS: ALBUMIN 5.3 g/dL (3.2-5.5); ALBUMIN/GLOBULIN RATIO 1.8 (1.0-2.2); ALKALINE PHOSPHATASE 64 IU/L (42-121); ALT ALANINE AMINOTRANSFERASE 34 IU/L (10-60); AST ASPARTATE AMINOTRANSFERASE 33 IU/L (10-42); BILIRUBIN,TOTAL 0.7 mg/dL (0.2-1.0); BUN - BLOOD UREA NITROGEN 21 mg/dL (6-20); CALCIUM 9.7 mg/dL (8.5-10.3); CARBON DIOXIDE - CO2 24 mmol/L (21-32); CHLORIDE 100 mmol/L (101-111); CREATININE 1.4 mg/dL (0.6-1.2); ETOH - ETHANOL < 5.0 mg/dL; GFR - MDRD 57 (>89); GLUCOSE 110 mg/dL (70-100); LIPASE 28 U/L (22-51); POTASSIUM 4.1 mmol/L (3.5-5.0); SODIUM 137 mmol/L (135-145); TOTAL PROTEIN 8.3 g/dL (6.7-8.2)
[2021-10-17 02:47] LABS: MUDS CUTOFF CONCENTRATIONS CUTOFF CONC BELOW:
[2021-10-17 02:48] LABS: BILIRUBIN,URINE NEGATIVE (NEGATIVE); GLUCOSE, URINE (UA) NEGATIVE (NEGATIVE); KETONES,URINE (UA) NEGATIVE (NEGATIVE); LEUKOCYTE ESTERASE, URINE NEGATIVE (NEGATIVE); NITRITE,URINE NEGATIVE (NEGATIVE); OCCULT BLOOD,URINE NEGATIVE (NEGATIVE); PROTEIN,URINE NEGATIVE (NEGATIVE); UROBILINOGEN,URINE 0.2 (NORMAL) E.U./dL (NORMAL)
[2021-10-17 02:49] LABS: CLARITY,URINE CLEAR (CLEAR)
[2021-10-17 02:58] LABS: AMPHETAMINE SCREEN,URINE NEGATIVE (NEGATIVE); BARBITURATE SCREEN,UR NEGATIVE (NEGATIVE); BENZODIAZEPINES SCREEN, URINE NEGATIVE (NEGATIVE); COCAINE SCREEN URINE NEGATIVE (NEGATIVE); METHADONE SCREEN, URINE NEGATIVE (NEGATIVE); METHAMPHETAMINES SCREEN, URINE NEGATIVE (NEGATIVE); OPIATE SCREEN, URINE NEGATIVE (NEGATIVE); OXYCODONE SCREEN, URINE NEGATIVE (NEGATIVE); PROPOXYPHENE SCREEN, URINE NEGATIVE (NEGATIVE); THC CANNABINOID SCREEN, URINE POSITIVE (NEGATIVE); TRICYCLIC ANTIDEPRESSANT,URINE NEGATIVE (NEGATIVE)
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
[2021-10-17 08:58] VITALS: BP 124/75
== END 2021-10-17 08:59 | disposition home or self-care (01) ==
LOC: ED 23:01
DX: F42.2 Mixed obsessional thoughts and acts (principal); F41.1 Generalized anxiety disorder; F17.200 Nicotine dependence, unspecified, uncomplicated
CPT/HCPCS: 36415; 80053; 80306; 80320; 81003; 83690; 85025; 96372; 99283; G0427; J3411; Q3014; 81001; 87086

== ENCOUNTER 2022-08-15 15:47 | Emergency (ER) | payer OTHER ==
[2022-08-15 16:11] LABS: BASOPHILS % (AUTO) 0.4 %; HCT - HEMATOCRIT 45.9 % (42.0-52.0); HGB - HEMOGLOBIN 16.3 g/dL (14.0-18.0); LYMPHOCYTES % (AUTO) 3.9 %; MEAN CORPUSCULAR HEMOGLOBIN 30.5 pg (27.0-31.0); MEAN CORPUSCULAR HGB CONC 35.5 g/dL (32.0-36.0); MEAN CORPUSCULAR VOLUME 85.8 fL (80.0-94.0); MEAN PLATELET VOLUME 9.7 fL (7.4-11.4); MONOCYTES % (AUTO) 11.8 %; NEUTROPHILS % (AUTO) 83.3 %; PLT - PLATELET COUNT 301 10^3/uL (130-450); RED BLOOD COUNT 5.35 10^6/uL (4.70-6.10); RED CELL DISTRIBUTION WIDTH 12.4 % (12.0-15.0); WHITE BLOOD COUNT 23.5 x10^3/uL (4.8-10.8)
[2022-08-15] MEDS ORDERED: SODIUM CHLORIDE 0.9% 1,000 ML IV STA ×2 (16:14→16:40)
[2022-08-15] MEDS ORDERED: ONDANSETRON 4 MG/2 ML VIAL IVP STA (16:14)
[2022-08-15 16:17] LABS: ABNORMAL LYMPHS % (MANUAL) 0 %; BAND NEUTROPHILS % (MANUAL) 0 %
--- NOTE | 2022-08-15 16:24 | ED Physician Documentation ---
History of Present Illness - Stated complaint Stated Complaint: VOMITING - Chief complaint Chief Complaint: Abd Pain - Additonal information Additional information: 41-year-old male who has a history of alcohol abuse disorder presents the em ergency department for evaluation of uncontrolled nausea and vomiting. Symptoms began about 4 AM. He reports that he drinks heavily every day. He reports at least 10 beers a day though his partner in the room reports it is significantly more than that. His primary care provider started him on naltrexone about 1 week ago. Currently taking 50 mg daily. His partner reports that he has a history of sobriety that lasted about 7 months until he started drinking again about 6 weeks ago. Patient reports that when the vomiting began he has been unable to keep anything down and has been actively dry heaving. He has some diffuse but nonfocal abdominal pain. No fevers. Was admitted to the hospital once years ago for a similar episode and CRISTI Meds: Naltrexone, fluvoxamine, valproic acid, Seroquel. Review of Systems Constitutional: denies: Fever, Chills Throat: reports: Reviewed and negative Cardiac: reports: Reviewed and negative Respiratory: reports: Reviewed and negative GI: reports: Abdominal Pain, Nausea, Vomiting. denies: Diarrhea, Hematemesis : reports: Reviewed and negative Skin: reports: Reviewed and negative Musculoskeletal: reports: Reviewed and negative PD PAST MEDICAL HISTORY - Past Medical History Cardiovascular: None Respiratory: None Neuro: None Endocrine/Autoimmune: None GI: None : None HEENT: None Psych: Depression, Anxiety Musculoskeletal: None Derm: None - Past Surgical History Past Surgical History: Yes - Present Medications Home Medications: Ambulatory Orders Medication Instructions Recorded Confirmed Methylphenidate HCl 52 mg PO DAILY 02/16/19 02/16/19 [Methylphenidate ER] Mirtazapine 45 mg PO DAILY PM 02/16/19 02/16/19 Venlafaxine ER [Effexor ER] 37.5 mg PO DAILY 02/16/19 02/16/19 Fluvoxamine Maleate 50 mg PO DAILY #20 tablet 10/17/21 LORazepam [Lorazepam] 2 mg PO BID PRN #7 tablet 08/15/22 Prochlorperazine [Compazine] 5 mg PO Q6H PRN #10 tablet 08/15/22 - Allergies Allergies/Adverse Reactions: Allergies Allergy/AdvReac Type Severity Reaction Status Date / Time venom-wasp Allergy Anaphylaxis Verified 08/15/22 15:55 - Social History Does the pt smoke?: Yes Smoking Status: Current every day smoker Does the pt drink ETOH?: No Does the pt have substance abuse?: Yes - Immunizations Immunizations are current?: Yes - POLST Patient has POLST: No POLST Status: Full Code PD ED PE NORMAL - General General: Alert and oriented X 3, No acute distress. No: Well developed/nourished (Appears older than stated age) - HEENT HEENT: Atraumatic, Moist mucous membranes, Pharynx benign - Neck Neck: Supple, no meningeal sign, No adenopathy - Cardiac Cardiac: RRR, No murmur - Respiratory Respiratory: No respiratory distress, Clear bilaterally - Abdomen Abdomen: Normal bowel sounds, Soft. No: Non tender (diffuse non focal abdominal tenderness, non peritoneal) - Back Back: No CVA TTP, No spinal TTP - Derm Derm: Normal color, Warm and dry - Extremities Extremities: No deformity, No tenderness to palpate, Normal ROM s pain - Neuro Neuro: Alert and oriented X 3, hospital director 2-12 intact Eye Opening: Spontaneous Motor: Obeys Commands Verbal: Oriented GCS Score: 15 Results - Vitals Vitals: Vital Signs - 24 hr 08/15/22 08/15/22 15:50 18:52 Temperature 36.0 C L Heart Rate 103 H 93 Respiratory 20 16 Rate Blood Pressure 136/101 H 121/75 O2 Saturation 98 100 Oxygen O2 Source Room air - Labs Labs: Laboratory Tests 08/15/22 08/15/22 08/15/22 16:05 16:05 16:05 WBC 23.5 H RBC 5.35 Hgb 16.3 Hct 45.9 MCV 85.8 MCH 30.5 MCHC 35.5 RDW 12.4 Plt Count 301 MPV 9.7 Neut # (Auto) Not Reportable Lymph # (Auto) Not Reportable Talbot # (Auto) Not Reportable Eos # (Auto) Not Reportable Baso # (Auto) Not Reportable Absolute Nucleated RBC Not Reportable Total Counted 100 Band Neuts % (Manual) 0 Reactive Lymphs % (Man) 2 Abnorm Lymph % (Manual) 0 Nucleated RBC % Not Reportable Neutrophils # (Manual) 20.2 H Lymphocytes # (Manual) 1.4 L Monocytes # (Manual) 1.9 H Eosinophils # (Manual) 0.0 Basophils # (Manual) 0.0 Differential Comment MANUAL DIFFERENTIAL WBC Morphology NORMAL APPEARANCE Platelet Estimate NORMAL (130-450,000) Platelet Morphology NORMAL APPEARANCE RBC Morph Micro Appear NORMAL APPEARANCE Sodium 143 Potassium 4.0 Chloride 99 L Carbon Dioxide 21 Anion Gap 23.0 H BUN 29 H Creatinine 2.4 H Estimated GFR (MDRD) 30 L Glucose 160 H Calcium 10.2 Total Bilirubin 1.1 H AST 39 ALT 25 Alkaline Phosphatase 89 Total Creatine Kinase 448 H Total Protein 9.8 H Albumin 5.9 H Globulin 3.9 Albumin/Globulin Ratio 1.5 Lipase 31 Urine Color Urine Clarity Urine pH Ur Specific Montara Urine Protein Urine Glucose (UA) Urine Ketones Urine Occult Blood Urine Nitrite Urine Bilirubin Urine Urobilinogen Ur Leukocyte Esterase Urine RBC Urine WBC Ur Squamous Epith Cells Amorphous Sediment Urine Bacteria Urine Casts Ur Microscopic Review Urine Culture Comments 08/15/22 08/15/22 16:25 18:47 WBC RBC Hgb Hct MCV MCH MCHC RDW Plt Count MPV Neut # (Auto) Lymph # (Auto) Talbot # (Auto) Eos # (Auto) Baso # (Auto) Absolute Nucleated RBC Total Counted Band Neuts % (Manual) Reactive Lymphs % (Man) Abnorm Lymph % (Manual) Nucleated RBC % Neutrophils # (Manual) Lymphocytes # (Manual) Monocytes # (Manual) Eosinophils # (Manual) Basophils # (Manual) Differential Comment WBC Morphology Platelet Estimate Platelet Morphology RBC Morph Micro Appear Sodium 141 Potassium 4.7 Chloride 102 Carbon Dioxide 25 Anion Gap 14.0 H BUN 32 H Creatinine 2.0 H Estimated GFR (MDRD) 37 L Glucose 116 H Calcium 8.6 Total Bilirubin 1.1 H AST 31 ALT 19 Alkaline Phosphatase 65 Total Creatine Kinase Total Protein 7.8 Albumin 4.8 Globulin 3.0 Albumin/Globulin Ratio 1.6 Lipase 29 Urine Color YELLOW Urine Clarity HAZY Urine pH 5.0 Ur Specific Montara >=1.030 H Urine Protein 30 H Urine Glucose (UA) NEGATIVE Urine Ketones NEGATIVE Urine Occult Blood TRACE-LYSE Urine Nitrite NEGATIVE Urine Bilirubin NEGATIVE Urine Urobilinogen 0.2 (NORMAL) Ur Leukocyte Esterase NEGATIVE Urine RBC 0-5 Urine WBC 0-3 Ur Squamous Epith Cells NONE SEEN Amorphous Sediment Few Urine Bacteria Rare Urine Casts 0-2 Granular Casts Ur Microscopic Review INDICATED Urine Culture Comments NOT INDICATED - Rads (name of study) CT abd wo Radiology: Final report received (Causing nausea and vomiting is not seen. No dilated loops of bowel are seen. Normal appendix is partially seen. No kidney stones or obstructive uropathy can be seen) PD MEDICAL DECISION MAKING - ED course Complexity details: reviewed results, re-evaluated patient, considered differential, d/w patient ED course: 41-year-old male presents emergency department for evaluation of uncontrolled nausea and vomiting. This followed heavy alcohol use yesterday evening. He last drank about 9 PM. He does have a history of alcohol abuse as well as a history of acute kidney injury secondary to prolonged nausea and vomiting. On presentation the patient was actively vomiting. He had a nonfocal abdominal exam. His initial labs showed significant leukocytosis of 23,000. His electrolytes were consistent with a mild acute kidney injury with a elevated BUN of 24 and a creatinine of 2.4. His baseline creatinine appears to be 1.6 Here in the emergency department we did obtain a CT of the abdomen that showed no acute abdominal pathology. He was repleted with 2 L of crystalloid here in the emergency department as well as thiamine and folate. We were able to get adequate symptom control using initially a dose of Zofran followed by Compazine. Since receiving the Compazine he has tolerated sips of clear liquids without further nausea and vomiting. I did recheck his BMP and found that his creatinine had decreased to 2. I discussed with the patient and his mom at the bedside that he is likely now stable for discharge home. Nursing staff did check an initial CIWA which was 11 and he was given 2 mg of Ativan orally. On repeat it is a 9. I do not note any obvious tremor. The majority of his CIWA score was given secondary to nausea. The patient is not quite ready to stop drinking. He is interested in [place] and the information was given to him on discharge. Prescription for a little bit of Zofran will be sent to the pharmacy as well as some Compazine. He is encouraged to continue his other prescribed medications including the naltrexone. Emergent return precautions were discussed for any concerns of uncontrolled nausea and vomiting or alcohol withdrawal. Departure - Departure Disposition: 01 Home, Self Care Clinical Impression: Alcohol abuse, Acute kidney injury, Dehydration Nausea and vomiting Qualifiers: Vomiting type: unspecified Qualified Code(s): R11.2 - Nausea with vomiting, unspecified Prescriptions: Prochlorperazine [Compazine] 5 mg PO Q6H PRN #10 tablet PRN Reason: Nausea / Vomiting LORazepam [Lorazepam] 2 mg PO BID PRN #7 tablet PRN Reason: Alcohol Withdrawal Comments: Dalton calvin came to the emergency department today with uncontrolled nausea and vomiting after drinking heavily last night. Initially your BUN and creatinine, markers of your kidney function were mildly elevated. We did give you 2 L of IV fluids as well as some nausea medicine. Following this you are no longer vomiting and tolerating sips of clear liquids. We did recheck your BUN and creatinine and they have decreased though not fully normalized. I do recommend you follow-up closely with your primary care doctor I would like your labs repeated early this week to make sure that they are stabilizing. I encourage you to follow-up with [facility] detox facility when you are ready to stop drinking. I believe you are at risk for withdrawal and alcohol withdrawal can be serious and deadly. [facility] [address], [place] [address] I have sent a prescription for Compazine and nausea and vomiting medicine to the [facility] in [place]. I have also sent a prescription for limited amount of Ativan that you are to use as needed once or twice daily if you feel that you are developing alcohol withdrawal. Use this very cautiously. It can be sedating and you are not safe to drive when taking it. If at any point you feel that you have uncontrolled nausea or vomiting, or feel that you are developing uncontrolled symptoms of alcohol withdrawal you are to return immediately to the ER for repeat evaluation.
[2022-08-15 16:28] LABS: ALBUMIN 5.9 g/dL (3.2-5.5); ALBUMIN/GLOBULIN RATIO 1.5 (1.0-2.2); BILIRUBIN,TOTAL 1.1 mg/dL (0.2-1.0); CALCIUM 10.2 mg/dL (8.5-10.3); CREATININE 2.4 mg/dL (0.6-1.2); TOTAL PROTEIN 9.8 g/dL (6.7-8.2)
[2022-08-15 16:37] LABS: GLUCOSE, URINE (UA) NEGATIVE (NEGATIVE); KETONES,URINE (UA) NEGATIVE (NEGATIVE); LEUKOCYTE ESTERASE, URINE NEGATIVE (NEGATIVE); NITRITE,URINE NEGATIVE (NEGATIVE); OCCULT BLOOD,URINE TRACE-LYSE (NEGATIVE); PROTEIN,URINE 30 mg/dL (NEGATIVE); UROBILINOGEN,URINE 0.2 (NORMAL) E.U./dL (NORMAL)
[2022-08-15 16:39] LABS: CLARITY,URINE HAZY (CLEAR)
[2022-08-15 16:45] LABS: BILIRUBIN,URINE NEGATIVE (NEGATIVE); ICTOTEST,URINE NEGATIVE
[2022-08-15 16:49] LABS: LYMPHOCYTES # (MANUAL) 1.4 10^3/uL (1.5-3.5); LYMPHOCYTES % (MANUAL) 4 %; MONOCYTES # (MANUAL) 1.9 10^3/uL (0.0-1.0); NEUTROPHILS # (MANUAL) 20.2 10^3/uL (1.5-6.6); REACTIVE LYMPHS % (MANUAL) 2 %
[2022-08-15 16:50] LABS: DIFFERENTIAL COMMENT MANUAL DIFFERENTIAL; PLATELET ESTIMATE, MANUAL NORMAL (130-450,000) (NORMAL); PLATELET MORPHOLOGY NORMAL APPEARANCE (NORMAL); RBC MORPHOLOGY (MULTIPLE) NORMAL APPEARANCE (NORMAL); WBC MORPHOLOGY (MULTIPLE) NORMAL APPEARANCE (NORMAL)
[2022-08-15 16:55] LABS: AMORPHOUS SEDIMENT,UR Few /LPF; BACTERIA,URINE Rare /HPF (None Seen); RBC,URINE 0-5 /HPF (0-5); SQUAMOUS EPITHELIAL CELL,UR NONE SEEN (<= Few); WBC,URINE 0-3 /HPF (0-3)
--- NOTE | 2022-08-15 17:03 | CT Report ---
PROCEDURE: Abdomen/Pelvis WO INDICATIONS: ITS.REASON: nausea and vomiting TECHNIQUE: Noncontrast 5 mm thick sections acquired from the diaphragms to the symphysis. 5 mm coronal and sagi ttal reformats were then performed. For radiation dose reduction, the following was used: automated exposure control, adjustment of mA and/or kV according to patient size. COMPARISON: Correlation is made with retroperitoneal ultrasound, 02/16/2019 FINDINGS: Image quality: Excellent. ABDOMEN: Lung bases: Lung bases are clear. Heart size is normal. Solid organs: Liver and spleen are normal in size. Gallbladder wall does not appear thickened. P ancreas is normal in contours. No adrenal nodules. Kidneys are normal in size, without hydronephros is or nephrolithiasis. Peritoneum and bowel: Unenhanced bowel loops demonstrate normal wall thickness and caliber. No free fluid or air. A normal appendix is partially seen. Nodes and vessels: No retroperitoneal or mesenteric adenopathy by size criteria. Aorta and inferior vena cava are normal in caliber. Miscellaneous: No ventral hernias. PELVIS: Genitourinary: Bladder wall thickness is normal. Miscellaneous: No inguinal hernias or adenopathy. Bones: No suspicious bony lesions. No vertebral body compression fractures. Limbus vertebral sahil s are incidentally noted involving L2, L3, L4, and L5. IMPRESSION: A cause of nausea and vomiting is not seen. No dilated loops of bowel are seen. A normal appendix is partially seen. No kidney stones or obstructive uropathy can be seen. Reviewed by: Jamie Nicholas MD on 08/15/2022 4:01 PM ЕЛЕНА Approved by: Jamie Nicholas MD on 08/15/2022 4:01 PM ЕЛЕНА Station ID: [id number]
[2022-08-15] MEDS ORDERED: PROCHLORPERAZINE 10 MG/2 ML VIAL IVP STA (17:05)
[2022-08-15] MEDS ORDERED: LORazepam 1 MG TABLET PO STA (17:24)
[2022-08-15] MEDS ORDERED: THIAMINE INJ 100 MG in SODIUM CHLORIDE 0.9% 50 ML IV STA (17:29)
[2022-08-15] MEDS ORDERED: FOLIC ACID INJ 1 MG in SODIUM CHLORIDE 0.9% 1,000 ML IV STA (17:31)
[2022-08-15 19:05] LABS: ALBUMIN 4.8 g/dL (3.2-5.5); ALBUMIN/GLOBULIN RATIO 1.6 (1.0-2.2); BILIRUBIN,TOTAL 1.1 mg/dL (0.2-1.0); CALCIUM 8.6 mg/dL (8.5-10.3); POTASSIUM 4.7 mmol/L (3.5-5.0); TOTAL PROTEIN 7.8 g/dL (6.7-8.2)
[2022-08-15 19:35] VITALS: BP 121/68
== END 2022-08-15 19:35 | disposition home or self-care (01) ==
LOC: ED 15:47
DX: F10.10 Alcohol abuse, uncomplicated (principal); N17.9 Acute kidney failure, unspecified; E86.0 Dehydration
CPT/HCPCS: 36415; 74176; 80053; 81001; 82550; 83690; 85025; 96361; 96374; 96375; 99284; J8499; 81003; 87086

== ENCOUNTER 2022-08-27 11:03 | Outpatient (CLI) | payer OTHER ==
[2022-08-27 18:09] LABS: BASOPHILS % (AUTO) 0.7 %; EOSINOPHILS # (AUTO) 0.1 10^3/uL (0.0-0.7); LYMPHOCYTES % (AUTO) 16.4 %; MEAN CORPUSCULAR HEMOGLOBIN 30.5 pg (27.0-31.0); MEAN CORPUSCULAR HGB CONC 32.4 g/dL (32.0-36.0); MEAN CORPUSCULAR VOLUME 94.1 fL (80.0-94.0); MEAN PLATELET VOLUME 10.1 fL (7.4-11.4); MONOCYTES # (AUTO) 0.8 10^3/uL (0.0-1.0); MONOCYTES % (AUTO) 12.3 %; NEUTROPHILS # (AUTO) 4.2 10^3/uL (1.5-6.6); NEUTROPHILS % (AUTO) 68.1 %; PLT - PLATELET COUNT 327 10^3/uL (130-450); RED BLOOD COUNT 3.93 10^6/uL (4.70-6.10); RED CELL DISTRIBUTION WIDTH 12.4 % (12.0-15.0); WHITE BLOOD COUNT 6.1 x10^3/uL (4.8-10.8)
[2022-08-27 18:19] LABS: THYROID STIMULATING HORMONE 1.7 uIU/mL (0.34-5.60)
[2022-08-27 18:24] LABS: ALBUMIN 4.2 g/dL (3.2-5.5); ALBUMIN/GLOBULIN RATIO 1.4 (1.0-2.2); ALKALINE PHOSPHATASE 64 IU/L (42-121); ALT ALANINE AMINOTRANSFERASE 15 IU/L (10-60); AST ASPARTATE AMINOTRANSFERASE 19 IU/L (10-42); BILIRUBIN,TOTAL 0.2 mg/dL (0.2-1.0); BUN - BLOOD UREA NITROGEN 22 mg/dL (6-20); CALCIUM 9.3 mg/dL (8.5-10.3); CARBON DIOXIDE - CO2 29 mmol/L (21-32); CHLORIDE 102 mmol/L (101-111); CHOL/HDL RATIO 3.1 (<5.0); CHOLESTEROL 169 mg/dL; CREATININE 1.3 mg/dL (0.6-1.2); GFR - MDRD 61 (>89); GLUCOSE 99 mg/dL (70-100); HDL CHOLESTEROL 54 mg/dL; LDL CHOLESTEROL,CALCULATED 103 mg/dL; LDL/HDL RATIO 1.9 (<3.6); POTASSIUM 4.6 mmol/L (3.5-5.0); SODIUM 139 mmol/L (135-145); TOTAL PROTEIN 7.2 g/dL (6.7-8.2); TRIGLYCERIDES 58 mg/dL; VLDL CHOLESTEROL 12 mg/dL
== END 2022-08-27 11:04 | disposition home or self-care (01) ==
LOC: LAB.N 11:03
PROVIDERS: ATTEND Physician Assistant
DX: N17.9 Acute kidney failure, unspecified (principal); Z13.220 Encounter for screening for lipoid disorders; Z13.29 Encounter for screening for other suspected endocrine disorder
CPT/HCPCS: 36415; 80053; 80061; 83721; 84443; 85025

== ENCOUNTER 2023-03-05 20:07 | Outpatient (CLI) | payer OTHER | END 2023-03-05 20:08 | disposition left against medical advice (07) | LOC: EMS 20:07 | DX: R55 Syncope and collapse (principal); R63.8 Other symptoms and signs concerning food and fluid intake; R63.4 Abnormal weight loss; S09.90XA Unspecified injury of head, initial encounter; W07.XXXA Fall from chair, initial encounter; Y92.000 Kitchen of unspecified non-institutional (private) residence as the place of occurrence of the external cause ==

== ENCOUNTER 2023-03-05 21:08 | Emergency (ER) | payer OTHER ==
[2023-03-05 21:39] LABS: BASOPHILS % (AUTO) 0.3 %; EOSINOPHILS # (AUTO) 0.1 10^3/uL (0.0-0.7); HCT - HEMATOCRIT 39.2 % (42.0-52.0); HGB - HEMOGLOBIN 13.7 g/dL (14.0-18.0); LYMPHOCYTES # (AUTO) 2.4 10^3/uL (1.5-3.5); LYMPHOCYTES % (AUTO) 26.2 %; MEAN CORPUSCULAR HEMOGLOBIN 32.2 pg (27.0-31.0); MEAN CORPUSCULAR HGB CONC 34.9 g/dL (32.0-36.0); MEAN PLATELET VOLUME 9.8 fL (7.4-11.4); MONOCYTES # (AUTO) 0.7 10^3/uL (0.0-1.0); MONOCYTES % (AUTO) 7.9 %; NEUTROPHILS # (AUTO) 5.9 10^3/uL (1.5-6.6); NEUTROPHILS % (AUTO) 64.3 %; PLT - PLATELET COUNT 216 10^3/uL (130-450); RED BLOOD COUNT 4.26 10^6/uL (4.70-6.10); RED CELL DISTRIBUTION WIDTH 12.1 % (12.0-15.0); WHITE BLOOD COUNT 9.2 x10^3/uL (4.8-10.8)
--- OUTSIDE RECORDS SUMMARY | 2023-03-05 21:39 | EXTERNAL MEDICAL SUMMARY RPT | Continuity of Care Document ---
:1980 Author Organization [facility] Address [address] [place] [address] Phone Care Team Providers Name Role Phone Lior Reyez Unavailable Unavailable Allergies No information. Encounters No information. Functional Status No information. Immunizations No information. Medications date description facility 2023-02-23 00:00 Divalproex [facility] 2023-02-23 00:00 Naltrexone [facility] 2022-12-16 00:00 Omeprazole [facility] 2023-02-23 00:00 Fluvoxamine [facility] Problems No information. Procedures No information. Results/Labs No information. Social History date description facility 2022-12-16 00:00 Smokes tobacco daily (finding) [facility] 2023-02-23 00:00 Smokes tobacco daily (finding) [facility] Vital Signs date measurement value units 2022-12-16 00:00 BMI 26.2 kg/m2 2022-12-16 00:00 BP_diastolic 79 mmHg 2022-12-16 00:00 BP_systolic 108 mmHg 2022-12-16 00:00 heart_rate 95 /min 2022-12-16 00:00 height_metric 179.07 cm 2022-12-16 00:00 height_standard 70.5 in 2022-12-16 00:00 o2_saturation 98 % 2022-12-16 00:00 weight_metric 84.08 kg 2022-12-16 00:00 weight_standard 185.36 lb
[2023-03-05 21:53] LABS: ALBUMIN 4.2 g/dL (3.2-5.5); ALBUMIN/GLOBULIN RATIO 1.3 (1.0-2.2); BILIRUBIN,TOTAL 0.6 mg/dL (0.2-1.0); CALCIUM 8.9 mg/dL (8.5-10.3); CREATININE 1.1 mg/dL (0.6-1.2); POTASSIUM 3.4 mmol/L (3.5-5.0); TOTAL PROTEIN 7.4 g/dL (6.7-8.2)
--- NOTE | 2023-03-06 00:44 | ED Physician Documentation ---
PD HPI SYNCOPE - Stated complaint Stated Complaint: FAINT - Chief complaint Chief Complaint: Neuro - History obtained from History obtained from: Patient - History of Present Illness Witnessed: Witnessed - Additional information Additional information: HPI from patient as well as family (at bedside in ED, provides some HPI, specifically what she witnessed when patient was unconscious). Patient was at home at rest tonight when, at approximately 8 PM, he stood up and suddenly felt unwell; specifically, he had lightheadedness, generalized weakness, nausea, and "felt like I might pass out" (per patient). He ambulated into another room but woke on floor. Family was in adjacent room, heard sound of objects being knocked off of a table; she found patient on the floor unresponsive, noting several objects had been knocked off a table adjacent to where patient was lying on floor. She says patient was unresponsive for less than 30 seconds, but noted patient exhibited some stiffening and twitching of muscles. She describes a rapid return to baseline once he had regained consciousness (description does not suggest post-ictal phase). She says he then tried to get up and again fell to the ground, appearing to do so due to generalized weakness; he did not lose consciousness at that time, but again had to go to ground when he tried to stand up yet again. On arrival to ED, patient is asymptomatic. Denies h/o similar episode(s). 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 denies: Abdominal Pain, Vomiting Neurologic: reports: Generalized weakness (resolved), Syncope. denies: Focal weakness, Numbness, Confused, Altered mental status, Headache, Head injury PD PAST MEDICAL HISTORY - Past Medical History Cardiovascular: None Respiratory: None Neuro: None Endocrine/Autoimmune: None GI: None : None HEENT: None Psych: Depression, Anxiety Musculoskeletal: None Derm: None - Past Surgical History Past Surgical History: Yes - Present Medications Home Medications: Ambulatory Orders Medication Instructions Recorded Confirmed Methylphenidate HCl 52 mg PO DAILY 02/16/19 02/16/19 [Methylphenidate ER] Mirtazapine 45 mg PO DAILY PM 02/16/19 02/16/19 Venlafaxine ER [Effexor ER] 37.5 mg PO DAILY 04/18/19 04/18/19 Fluvoxamine Maleate 50 mg PO DAILY #20 tablet 10/17/21 LORazepam [Lorazepam] 2 mg PO BID PRN #7 tablet 08/15/22 Prochlorperazine [Compazine] 5 mg PO Q6H PRN #10 tablet 08/15/22 - Allergies Allergies/Adverse Reactions: Allergies Allergy/AdvReac Type Severity Reaction Status Date / Time venom-wasp Allergy Anaphylaxis Verified 08/15/22 15:55 - Social History Does the pt smoke?: Yes Smoking Status: Current every day smoker Does the pt drink ETOH?: No Does the pt have substance abuse?: Yes - Immunizations Immunizations are current?: Yes - POLST Patient has POLST: No POLST Status: Full Code PD ED PE NORMAL - Vitals Vital signs reviewed: Yes - General General: Alert and oriented X 3, No acute distress, Well developed/nourished - HEENT HEENT: Atraumatic, PERRL, EOMI - Neck Neck: Supple, no meningeal sign, No bony TTP - Cardiac Cardiac: RRR, No murmur - Respiratory Respiratory: No respiratory distress, Clear bilaterally - Abdomen Abdomen: Soft, Non tender - Neuro Neuro: Alert and oriented X 3, ultrasonic solderer 2-12 intact, No motor deficit, No sensory deficit, Normal speech Eye Opening: Spontaneous Motor: Obeys Commands Verbal: Oriented GCS Score: 15 - Psych Psych: Normal mood, Normal affect Results - Vitals Vitals: Oxygen O2 Source Room air - Labs Labs: Laboratory Tests 03/05/23 03/05/23 03/05/23 21:19 21:34 21:34 WBC 9.2 RBC 4.26 L Hgb 13.7 L Hct 39.2 L MCV 92.0 MCH 32.2 H MCHC 34.9 RDW 12.1 Plt Count 216 MPV 9.8 Neut # (Auto) 5.9 Lymph # (Auto) 2.4 Benton # (Auto) 0.7 Eos # (Auto) 0.1 Baso # (Auto) 0.0 Absolute Nucleated RBC 0.00 Nucleated RBC % 0.0 Sodium 137 Potassium 3.4 L Chloride 101 Carbon Dioxide 23 Anion Gap 13.0 BUN 15 Creatinine 1.1 Estimated GFR (MDRD) 74 L Glucose 110 H POC Whole Bld Glucose 128 H Calcium 8.9 Total Bilirubin 0.6 AST 31 ALT 52 Alkaline Phosphatase 51 Troponin I High Sens Total Protein 7.4 Albumin 4.2 Globulin 3.2 Albumin/Globulin Ratio 1.3 Lipase 30 03/05/23 21:34 WBC RBC Hgb Hct MCV MCH MCHC RDW Plt Count MPV Neut # (Auto) Lymph # (Auto) Benton # (Auto) Eos # (Auto) Baso # (Auto) Absolute Nucleated RBC Nucleated RBC % Sodium Potassium Chloride Carbon Dioxide Anion Gap BUN Creatinine Estimated GFR (MDRD) Glucose POC Whole Bld Glucose Calcium Total Bilirubin AST ALT Alkaline Phosphatase Troponin I High Sens 3.1 Total Protein Albumin Globulin Albumin/Globulin Ratio Lipase PD Medical Decision Making - ED course Complexity details: reviewed results, re-evaluated patient, considered differential, d/w patient ED course: NAD during ED stay and NSR on air sampling and monitoring while observed in ED. No concerning findings on EKG nor blood tests. Normal hs-cTn. Incidental note of minimal hypokalemia (3.4). Normal exam. ED liquor blender note indicates recent reduction in alcohol intake , but there is no tremulousness, no diaphoresis, does not appear anxious, and no other signs/symptoms to indicate alcohol withdrawal. Given prodrome prior to the syncope, with full recovery to baseline / asymptomatic in ED, suspect vasovagal cause with seizure-like activity due to transient cerebral low-flow state. Results d/w patient, return precautions discussed. I advised him to seek follow- up with primary care provider for reevaluation Departure - Departure Disposition: 01 Home, Self Care Clinical Impression: Syncope Qualifiers: Syncope type: unspecified Qualified Code(s): R55 - Syncope and collapse Condition: Good Instructions: ED Fainting Unkn Cause Follow-Up: Jenny Kline PA [Primary Care Provider] - Within 1 week Comments: There were no concerning or diagnostic findings on tonight's test, including the blood tests and EKG. Based on your description of symptoms, it sounds very much like the cause of your symptoms was a sudden drop in your blood pressure that was too low to maintain consciousness. The potential causes of such a problem range from common and benign to less common and potentially very dangerous; the lack of any significant or contributory findings on tonight's tests would suggest against any dangerous cause. Further testing in the emergency department is not indicated at this time, but you should follow-up with your [facility] care provider for reevaluation. As we discussed, your potassium level was low by the smallest possible increment; this is not nearly low enough to cause any symptoms nor immediate concern, but your primary care provider might repeat this lab somewhere the next few weeks to see that it is in the normal range. Discharge Date/Time: 03/06/23 01:15
[2023-03-06 01:15] VITALS: BP 102/76
== END 2023-03-06 01:15 | disposition home or self-care (01) ==
LOC: ED 21:08
DX: R55 Syncope and collapse (principal); E87.6 Hypokalemia; F17.200 Nicotine dependence, unspecified, uncomplicated
CPT/HCPCS: 36415; 80053; 83690; 84484; 85025; 93005; 99283; 99284

== ENCOUNTER 2023-03-17 08:00 | Outpatient (CLI) | payer OTHER ==
[2023-03-17 11:43] LABS: BASOPHILS % (AUTO) 0.5 %; EOSINOPHILS # (AUTO) 0.1 10^3/uL (0.0-0.7); HCT - HEMATOCRIT 42.6 % (42.0-52.0); HGB - HEMOGLOBIN 14.1 g/dL (14.0-18.0); LYMPHOCYTES # (AUTO) 2.2 10^3/uL (1.5-3.5); LYMPHOCYTES % (AUTO) 39.3 %; MEAN CORPUSCULAR HEMOGLOBIN 31.5 pg (27.0-31.0); MEAN CORPUSCULAR HGB CONC 33.1 g/dL (32.0-36.0); MEAN CORPUSCULAR VOLUME 95.3 fL (80.0-94.0); MEAN PLATELET VOLUME 10.7 fL (7.4-11.4); MONOCYTES # (AUTO) 0.5 10^3/uL (0.0-1.0); MONOCYTES % (AUTO) 8.3 %; NEUTROPHILS # (AUTO) 2.8 10^3/uL (1.5-6.6); NEUTROPHILS % (AUTO) 49.7 %; PLT - PLATELET COUNT 270 10^3/uL (130-450); RED BLOOD COUNT 4.47 10^6/uL (4.70-6.10); RED CELL DISTRIBUTION WIDTH 12.3 % (12.0-15.0); WHITE BLOOD COUNT 5.6 x10^3/uL (4.8-10.8)
[2023-03-17 12:49] LABS: THYROID STIMULATING HORMONE 1.27 uIU/mL (0.34-5.60)
[2023-03-17 12:58] LABS: ALBUMIN 4.5 g/dL (3.2-5.5); ALBUMIN/GLOBULIN RATIO 1.5 (1.0-2.2); BILIRUBIN,TOTAL 0.4 mg/dL (0.2-1.0); CALCIUM 9.3 mg/dL (8.5-10.3); CREATININE 1.1 mg/dL (0.6-1.2); TOTAL PROTEIN 7.5 g/dL (6.7-8.2)
[2023-03-17 13:00] LABS: FOLATE 7.42 ng/mL (5.90 - >24.8)
[2023-03-18 21:07] LABS: FREE TESTOSTERONE(DIRECT) 10.3 pg/mL (6.8-21.5)
== END 2023-03-17 23:59 | disposition home or self-care (01) ==
LOC: LAB.N 08:00
PROVIDERS: ATTEND Physician Assistant
DX: R63.0 Anorexia (principal); R53.83 Other fatigue
CPT/HCPCS: 36415; 80053; 82607; 82728; 82746; 83540; 84402; 84403; 84443; 84466; 85025

== ENCOUNTER 2023-04-05 10:40 | Outpatient (CLI) | payer OTHER ==
[2023-04-05 18:26] LABS: BUN - BLOOD UREA NITROGEN 13 mg/dL (6-20); CALCIUM 9.5 mg/dL (8.5-10.3); CARBON DIOXIDE - CO2 26 mmol/L (21-32); CHLORIDE 105 mmol/L (101-111); CHOL/HDL RATIO 3.7 (<5.0); CHOLESTEROL 228 mg/dL; CREATININE 1.1 mg/dL (0.6-1.2); GFR - MDRD 74 (>89); GLUCOSE 114 mg/dL (70-100); HDL CHOLESTEROL 62 mg/dL; LDL CHOLESTEROL,CALCULATED 133 mg/dL; LDL/HDL RATIO 2.1 (<3.6); POTASSIUM 4.4 mmol/L (3.5-5.0); SODIUM 138 mmol/L (135-145); TRIGLYCERIDES 163 mg/dL; VLDL CHOLESTEROL 33 mg/dL
[2023-04-05 21:40] LABS: ESTIMATED AVERAGE GLUCOSE 114 mg/dL (70-100); HEMOGLOBIN A1c% 5.6 % (4.27-6.07)
== END 2023-04-05 10:41 | disposition home or self-care (01) ==
LOC: LAB.N 10:40
PROVIDERS: ATTEND Physician Assistant
DX: R73.01 Impaired fasting glucose (principal); Z13.220 Encounter for screening for lipoid disorders
CPT/HCPCS: 36415; 80048; 80061; 83036; 83721

== ENCOUNTER 2024-06-17 12:23 | Emergency (ER) | payer BC, OTHER ==
--- NOTE | 2024-06-17 12:31 | ED Physician Documentation ---
PD HPI MHE - Stated complaint Stated Complaint: AMS, HEARING VOICES - History obtained from History obtained from: Patient - History of Present Illness Primary symptom: Other (he states trouble sleeping and racing mind as main issues. Had some passive suicidal ideation few days ago, not today. He is feeling that others can hearhis thoughts. Anxious.) Timing - onset: How many weeks ago (1-2) Contributing factors: Substance abuse - drugs (he uses cannibis regularly but has not had any for about 3 weeks. Feels maybe withdrawal from that. Denies meth or other drug use.). No: Substance abuse - ETOH (had been drinking 4-10 beers daily while in [place]. Stopped end May without notable withdrawal.) Similar symptoms before: Diagnosis (has had depression with anxiety and delusions in the past. He and mother state was not diagnosed bipolar. Has been on "many different medications" in the past and was also treated with ECT per mom. Does smoke nicotine cigarettes "as much as I can".) Recently seen: Not recently seen (he has not had any meds nor symptoms for about a year. Lives with parents. 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.) Review of Systems Constitutional: denies: Fever, Chills Nose: denies: Rhinorrhea / runny nose, Congestion Throat: denies: Sore throat Respiratory: denies: Cough GI: denies: Abdominal Pain, Vomiting, Diarrhea Neurologic: denies: Focal weakness, Headache Psychiatric: reports: Depressed, Anxiety, Insomnia PD PAST MEDICAL HISTORY - Past Medical History Cardiovascular: None Respiratory: None Neuro: None Endocrine/Autoimmune: None GI: None : None HEENT: None Psych: Depression, Anxiety Musculoskeletal: None Derm: None - Past Surgical History Past Surgical History: Yes - Present Medications Home Medications: Ambulatory Orders Medication Instructions Recorded Confirmed Methylphenidate HCl 52 mg PO DAILY 02/16/19 02/16/19 [Methylphenidate ER] Mirtazapine 45 mg PO DAILY PM 02/16/19 02/16/19 Venlafaxine ER [Effexor ER] 37.5 mg PO DAILY 02/16/19 02/16/19 Fluvoxamine Maleate 50 mg PO DAILY #20 tablet 10/17/21 LORazepam [Lorazepam] 2 mg PO BID PRN #7 tablet 08/15/22 Prochlorperazine [Compazine] 5 mg PO Q6H PRN #10 tablet 08/15/22 Lurasidone HCl 20 mg PO HS 30 Days #30 tab 06/17/24 Mirtazapine 15 mg PO HS #30 tablet 06/17/24 - Allergies Allergies/Adverse Reactions: Allergies Allergy/AdvReac Type Severity Reaction Status Date / Time venom-wasp Allergy Anaphylaxis Verified 08/15/22 15:55 - Social History Does the pt smoke?: Yes Smoking Status: Heavy tobacco smoker Does the pt drink ETOH?: No ETOH Use: Other (has not had alcohol since end may) Does the pt have substance abuse?: Yes Substance Use and Type: Marijuana (but not since the end may) - Immunizations Immunizations are current?: Yes - POLST Patient has POLST: No POLST Status: Full Code PD ED PE NORMAL - Vitals Vital signs reviewed: Yes - General General: Alert and oriented X 3, No acute distress, Well developed/nourished - Neck Neck: Supple, no meningeal sign, No adenopathy - Cardiac Cardiac: RRR, No murmur - Respiratory Respiratory: No respiratory distress, Clear bilaterally - Abdomen Abdomen: Soft, Non tender - Derm Derm: Normal color, Warm and dry - Extremities Extremities: Normal ROM s pain, No edema, No calf tenderness / cord - Neuro Neuro: Alert and oriented X 3, No motor deficit, Normal speech - Psych Psych: No: Normal affect (somewhat flat, and he is pleasant and conversant but seems to be trying to stay calm. ) Results - Vitals Vitals: Vital Signs - 24 hr 06/17/24 06/17/24 12:35 14:49 Temperature 36.9 C 36.3 C L Heart Rate 92 83 Respiratory 18 18 Rate Blood Pressure 142/90 H 133/86 H O2 Saturation 100 100 Oxygen O2 Source Room air - Labs Labs: Laboratory Tests 06/17/24 06/17/24 06/17/24 12:46 12:46 14:09 WBC 7.2 RBC 4.64 L Hgb 14.0 Hct 42.7 MCV 92.0 MCH 30.2 MCHC 32.8 RDW 12.8 Plt Count 328 MPV 10.1 Neut # (Auto) 4.3 Lymph # (Auto) 2.0 Craig # (Auto) 0.7 Eos # (Auto) 0.1 Baso # (Auto) 0.1 Absolute Nucleated RBC 0.00 Nucleated RBC % 0.0 Sodium 140 Potassium 4.0 Chloride 105 Carbon Dioxide 29 Anion Gap 6.0 BUN 21 H Creatinine 1.1 Estimated GFR (MDRD) 74 L Glucose 97 Calcium 9.9 Magnesium 2.2 Total Bilirubin 0.7 AST 19 ALT 18 Alkaline Phosphatase 60 Total Creatine Kinase 207 Total Protein 7.0 Albumin 4.8 Globulin 2.2 Albumin/Globulin Ratio 2.2 Lipase 11 TSH 1.06 Urine Color YELLOW Urine Clarity CLEAR Urine pH 6.5 Ur Specific [place] 1.010 Urine Protein NEGATIVE Urine Glucose (UA) NEGATIVE Urine Ketones NEGATIVE Urine Occult Blood NEGATIVE Urine Nitrite NEGATIVE Urine Bilirubin NEGATIVE Urine Urobilinogen 0.2 (NORMAL) Ur Leukocyte Esterase NEGATIVE Ur Microscopic Review NOT INDICATED Urine Culture Comments NOT INDICATED Salicylates < 1.5 Urine Opiates Screen NEGATIVE Ur Buprenorphine Scrn NEGATIVE Ur Oxycodone Screen NEGATIVE Urine Methadone Screen NEGATIVE Acetaminophen < 0.1 Ur Barbiturates Screen NEGATIVE Ur Tricyclics Screen NEGATIVE Ur Phencyclidine Scrn NEGATIVE Ur Amphetamine Screen NEGATIVE U Methamphetamines Scrn NEGATIVE U Benzodiazepines Scrn NEGATIVE Urine Cocaine Screen NEGATIVE U Cannabinoids Screen POSITIVE H Ur Drug Screen Comment CUTOFF CONC BELOW: Ethyl Alcohol < 10.0 PD Medical Decision Making - ED course Complexity details: reviewed results, considered differential (History of depression with likely some hyperactive components. Denies bipolar disorder or schizo for any. Has been treated for depression in the past with multiple medications and things for anxiety and his mom states he has had ECT treatment in the past with short-term improvement. ), d/w patient, d/w lead consultant (We do not have social work today and I think the patient would benefit from a psychiatric evaluation. Telepsych is available and we will contact them after labs done.) ED course: The patient's preferences for home treatment and not hospitalization. I asked if he would be totally against hospitalization and he is not totally against but strong preference for home. I did not have his mother waiting in but I believe she would probably say hospitalization. She is present and supportive in the room and the patient seems comfortable with her present. The patient had a telepsych evaluation. Concurrent agreement between patient and provider and mother is for outpatient therapy with initiating mirtazapine 15 mg at night for sleep and appetite and lurasidone 20 mg nightly for mood. I will prescribe the initial start of these for him. He does have a primary care at one of the would be clinics. They are working on out patient psychiatric ongoing care. The mother and patient are both agreeable to this plan. [facility]. Departure - Departure Disposition: 01 Home, Self Care Clinical Impression: Insomnia, Nicotine dependence, Cannabis use disorder Depression Qualifiers: Depression Type: major depressive disorder Major depression recurrence: recurrent Active/Remission status: currently active Major depression episode severity: severe Psychotic features: with psychotic features Qualified Code(s): F33.3 - Major depressive disorder, recurrent, severe with psychotic symptoms Condition: Stable Record reviewed to determine appropriate education?: Yes Follow-Up: Jenny Kline PA [Primary Care Provider] - Prescriptions: Lurasidone HCl 20 mg PO HS 30 Days #30 tab Mirtazapine 15 mg PO HS #30 tablet Comments: The psychiatric report suggests starting 2 medications. Mirtazapine 15 mg at night for sleep and to help with appetite in general. Lurasidone 20 mg to be taken at night with food. So this could be evening time and not necessarily at bedtime per se depend upon how that best works for you. I prescribed both and sent them to the [facility] pharmacy in [place]. Otherwise stay well-hydrated. Some element of daily exercise is always good for mood though it sounds like you get reasonable activity with part of the year doing crabbing etc. Not sure if you are active now. Try to cut down on the amount of nicotine use as that can affect sleep as well. Forms: PCP List Discharge Date/Time: 06/17/24 14:51
[2024-06-17 12:54] LABS: BASOPHILS # (AUTO) 0.1 10^3/uL (0.0-0.1); BASOPHILS % (AUTO) 0.7 %; EOSINOPHILS # (AUTO) 0.1 10^3/uL (0.0-0.7); EOSINOPHILS % (AUTO) 1.5 %; HCT - HEMATOCRIT 42.7 % (42.0-52.0); LYMPHOCYTES % (AUTO) 28.2 %; MEAN CORPUSCULAR HEMOGLOBIN 30.2 pg (27.0-31.0); MEAN CORPUSCULAR HGB CONC 32.8 g/dL (32.0-36.0); MEAN PLATELET VOLUME 10.1 fL (7.4-11.4); MONOCYTES # (AUTO) 0.7 10^3/uL (0.0-1.0); MONOCYTES % (AUTO) 9.3 %; NEUTROPHILS # (AUTO) 4.3 10^3/uL (1.5-6.6); NEUTROPHILS % (AUTO) 60.2 %; PLT - PLATELET COUNT 328 10^3/uL (130-450); RED BLOOD COUNT 4.64 10^6/uL (4.70-6.10); RED CELL DISTRIBUTION WIDTH 12.8 % (12.0-15.0); WHITE BLOOD COUNT 7.2 x10^3/uL (4.8-10.8)
[2024-06-17 13:02] VITALS: O2SAT 100
[2024-06-17 13:13] LABS: ALBUMIN 4.8 g/dL (3.2-5.5); ALBUMIN/GLOBULIN RATIO 2.2 (1.0-2.2); ALKALINE PHOSPHATASE 60 IU/L (42-121); ALT ALANINE AMINOTRANSFERASE 18 IU/L (10-60); AST ASPARTATE AMINOTRANSFERASE 19 IU/L (10-42); BILIRUBIN,TOTAL 0.7 mg/dL (0.2-1.0); BUN - BLOOD UREA NITROGEN 21 mg/dL (6-20); CALCIUM 9.9 mg/dL (8.5-10.3); CARBON DIOXIDE - CO2 29 mmol/L (21-32); CHLORIDE 105 mmol/L (101-111); CK- CREATINE KINASE 207 IU/L (30-223); CREATININE 1.1 mg/dL (0.6-1.3); ETOH - ETHANOL < 10.0 mg/dL; GFR - MDRD 74 (>89); GLUCOSE 97 mg/dL (74-104); LIPASE 11 U/L (11-82); MAGNESIUM 2.2 mg/dL (1.7-2.3); SODIUM 140 mmol/L (135-145)
[2024-06-17 13:17] LABS: ACETAMINOPHEN < 0.1 ug/mL; SALICYLATE < 1.5 mg/dL
--- NOTE | 2024-06-17 13:21 | TELEPSYCH PHYS NOTE ---
[facility] Telepsych Consult Consult Date: 06/17/24 Name of Referring Provider:: ED Reason for Consult: Unknown - Suicide Risk Sreening (ASQ Tool) In the past few weeks, have you wished you were ?: Yes In the past few weeks, have you felt that you or your family would be better off if you were ?: No In the past week, have you been having thoughts about killing yourself?: Yes Have you ever tried to kill yourself?: No - Assessment Language: [place]ian [place] Manager Required: No Cultural, Presybeterian or Spiritual Preferences: Not mentioned Notes: None available for review Chief Complaint: AMS, AH History of Present Illness: Patient states they are here for "Mainly I can't sleep, I can't get a good night sleep" It's been a few days he's not slept well. Mom says a couple of weeks. He's only had a couple hours of sleep a night the last 4 days. Mom and him are talking together. They [place] off [place], but back a while ago. He had been drinking and using marijuana. That was not unusual. Then he started having thoughts that others could hear his thoughts. He stopped using THC and is having withdrawal. But still having the thoughts. He got a med a few years ago that worked for the same problem. That medicine helped. Patient says he is here for something to sleep, not to get something to make the thoughts go away. Nurse has the bottle. Patient says appetite is not great, he's eating the basics, but using meal replacement shakes and stuff. He doesn't feel like eating a lot otherwise. He is not feeling particularly down or depressed, not really, well maybe. He has trouble with energy and motivation. He can concentrate/focus when he tries. But something will pop into his head about the thought broadcasting. He was using the plan when smoking. He did try 2-3 "special crystal infused joints", but does not know he used any synthetic or other drugs. This is the 3rd time he's gone through this induced by heavy smoking, which resulted in him quitting. Mom says: He has been in the . He ended up in [place] on this liquid thc product. Ended up getting better. He did go to a psychiatrist. The med is Lurasidone mom has it. He's been on Quetiapine and Fluvox in the past. He's been on many other meds in the past. Patient says: He has had many suicidal thoughts. Not in the last 24 hours. No thoughts of planning or intent. Just when he has a negative thought about someone (an insult), and thinks everyone can hear it and feels guilty. The only way he will think he could get out of it would be to shut it off. Plan would be "rope around the neck". Last time he felt intent was about 5 days ago while still on vacation. His plan would have been to do it when he got home, not on vacation. Asked what stopped him, he thinks a long time. He can't remember. Asked what he would do to be safe at home, says he can't say, doesn't know. He has probably 30 guns in the home, they are dads and he has no combination to it. But he lists access to rope, water, knives, heights, whatever... Asked mom her thoughts on safety. 3-4 days ago she was on the verge of calling 911 because he was so bad. Then he got up the next morning and said he would just try to forget. He's not been making those statements since, but still has thought broadcasting. Patient says he feels like he's getting through it and dealing better and better each day. Whether he will reach the point he can't deal anymore, he doesn't know. Nothing lasts forever so far. He is set on not doing any marijuana anymore and has been following through on that. He is set against getting admitted. He absolutely does state he will not harm himself in the coming days, by any means. He appears sincere. Mom appears to believe him as well. He was in 6 years, but mom isn't sure if he is [facility] eligible. 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 Community Resources Accessed: ED Family Psych History/ History of suicide: No known hx of suicide Nutritional Status: No nutritional concerns - Medication & Allergies Home Medications: Ambulatory Orders Medication Instructions Recorded Confirmed Methylphenidate HCl 52 mg PO DAILY 02/16/19 02/16/19 [Methylphenidate ER] Mirtazapine 45 mg PO DAILY PM 02/16/19 02/16/19 Venlafaxine ER [Effexor ER] 37.5 mg PO DAILY 02/16/19 02/16/19 Fluvoxamine Maleate 50 mg PO DAILY #20 tablet 10/17/21 LORazepam [Lorazepam] 2 mg PO BID PRN #7 tablet 08/15/22 Prochlorperazine [Compazine] 5 mg PO Q6H PRN #10 tablet 08/15/22 Allergies/Adverse Reactions: Allergies Allergy/AdvReac Type Severity Reaction Status Date / Time venom-wasp Allergy Anaphylaxis Verified 08/15/22 15:55 - Drug & Alcohol History Does patient have Drug/ETOH history or addictive behavior?: Yes Use: Uses substance without health or social issues: Cannabis, Psychoactive Drug Use Issues: Delusions, Sleep Disorder Abuse: Recurrent use of substance despite neg consequences: Cannabis Abuse Issues: Psychosis Dependence: Experiences withdrawal or developed tolerances: Cannabis Dependence Issues: Psychosis, Sleep Disorder, Withdrawal - Trauma Does the patient have a history of trauma, abuse, neglect or explotation?: No - Personal Information Does the patient have a history or present tendencies for violence?: None Does patient have any Legal Charges or Investigations?: No Environment & Living Situation - Social, Peer-Group (Note): At home Marital Status - Family Circumstances: Single 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 pt is living at [place]. Pt has one brother and his mother is living closely to him. 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 Social History Notes: pt denies cigarett smoker, alcohol and drug abuse. - Mental Status Exam Appearance and Attire: Appropriate Attitude and Behavior: Cooperative Speech: WNL Affect and Mood: Upset, congruent Association and Thought Process: Logical with intact association Thought Content: Denies current suicidal intent Perception: No AH but thought broadcasting Sensorium, memory and orientation: Alert, oriented, clear Intellectual - Cognitive functioning: Normal range Insight and Judgement: Fair Emotional and Behavioral Functioning: Deteriorated - Personal Goals Long-term Goals: Recovery - Risk/Protective Factors Risk Factors: Trigger events leading to humiliation, shame and/or despair Protective Factors / Internal: Ability to cope with stress, Frustration tolerance, Fear of or the actual act of killing self, Identifies reasons for living Protective Factors / External: Cultural, spiritual and/or moral attitudes agai nst suicide, Supportive social network of family or friends, Engaged in work or school - Plan 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 He stopped all THC related product use 2 weeks ago. He is improving. He was suicidal about 4 days ago which is concerning. HOwever I do find him genuine in his safety planning with me and mother whom lives with him is supportive of his choice to decline hospitalization as well. He needs medication and psychiatric follow up care. Whether prescribed by ED doc, or PCP makes no difference, but he needs a prescription today., Lurasidone 20mg tabs take one nightly with food (he has only 60mg tabs which is a little big for starting dose). Mirtazepine 15mg nightly for sleep and appetite. Follow up should be within 10 days with mental health med management, and enough medication to last until his scheduled follow up appointment. He is to return to ED in 3 days if zero improvement, or sooner if he is worsening. - Time Spent & Provider Location Telepsych consultation conducted via videoconferencing: Yes List names and roles of persons who participated in consult: Nina Lopez MD Telepsych Provider Location: [place] Time Spent (Minutes): 60
[2024-06-17 13:23] LABS: THYROID STIMULATING HORMONE 1.06 uIU/mL (0.34-5.60)
[2024-06-17 14:21] LABS: BILIRUBIN,URINE NEGATIVE (NEGATIVE); GLUCOSE, URINE (UA) NEGATIVE (NEGATIVE); KETONES,URINE (UA) NEGATIVE (NEGATIVE); LEUKOCYTE ESTERASE, URINE NEGATIVE (NEGATIVE); NITRITE,URINE NEGATIVE (NEGATIVE); OCCULT BLOOD,URINE NEGATIVE (NEGATIVE); PH,URINE 6.5 PH (5.0-7.5); PROTEIN,URINE NEGATIVE (NEGATIVE); UROBILINOGEN,URINE 0.2 (NORMAL) E.U./dL (NORMAL)
[2024-06-17 14:23] LABS: CLARITY,URINE CLEAR (CLEAR)
[2024-06-17 14:34] LABS: AMPHETAMINE SCREEN,URINE NEGATIVE (NEGATIVE); BARBITURATE SCREEN,UR NEGATIVE (NEGATIVE); BENZODIAZEPINES SCREEN, URINE NEGATIVE (NEGATIVE); BUPRENORPHINE SCREEN, URINE NEGATIVE (NEGATIVE); COCAINE SCREEN URINE NEGATIVE (NEGATIVE); METHADONE SCREEN, URINE NEGATIVE (NEGATIVE); METHAMPHETAMINES SCREEN, URINE NEGATIVE (NEGATIVE); OPIATE SCREEN, URINE NEGATIVE (NEGATIVE); OXYCODONE SCREEN, URINE NEGATIVE (NEGATIVE); THC CANNABINOID SCREEN, URINE POSITIVE (NEGATIVE); TRICYCLIC ANTIDEPRESSANT,URINE NEGATIVE (NEGATIVE)
[2024-06-17 14:51] VITALS: BP 133/86
== END 2024-06-17 14:51 | disposition home or self-care (01) ==
LOC: ED 12:23
DX: G47.00 Insomnia, unspecified (principal); F33.3 Major depressive disorder, recurrent, severe with psychotic symptoms; F17.200 Nicotine dependence, unspecified, uncomplicated
CPT/HCPCS: 36415; 80053; 80143; 80179; 80306; 81003; 82077; 82550; 83690; 83735; 84443; 85025; 90834; 99283; 99284; Q3014; 81001; 87086